=== PATIENT | female | born 1960 | race Hispanic/Latino ===

== ENCOUNTER 2019-07-05 10:40 | Observation (INO) | payer OTHER ==
[~2019-07-05] VITALS: Ht 157.5 cm; Wt 87.5 kg
[~2019-07-05 10:40] MED LIST: PREDNISONE5 MG PO; PROZAC20 MG PO; ULTRAM50 MG PO; WELLBUTRIN75 MG PO; ZOFRAN ODT4 MG PO
--- OUTSIDE RECORDS SUMMARY | 2019-07-05 10:43 | XMS REPORT | Clinical Summary ---
Author Author [facility] Address Unknown Phone Unavailable Care Team Providers Care Inspector Motor Vehicles Name Role Phone Ramez España MD PCP [phone] Allergies No Known Allergies Medications End Date Status Medication Sig Dispensed Refills Start Date Active buPROPion (WELLBUTRIN XL) Take 300 mg 0 300 MG 24 hr tablet by mouth daily. Active fLUoxetine (PROZAC) 20 MG Take 20 mg by 0 capsule mouth daily. Active hydrochlorothiazide Take 25 mg by 0 (HYDRODIURIL) 25 MG mouth daily. tablet Active Problems Problem Noted Date Anxiety 03/18/2016 Headache 03/17/2016 Family History Medical History Relation Name Comments Depression Daughter Asthma Father Hyperlipidemia Father Hypertension Father Mental illness Maternal Aunt Arthritis Maternal Grandmother Diabetes Maternal Grandmother Early Maternal Grandmother Depression Maternal Uncle Hearing loss Mother Hyperlipidemia Mother Arthritis Paternal Aunt Cancer Paternal Aunt Early Paternal Grandfather Early Paternal Grandmother Hyperlipidemia Sister Depression Son Relation Name Status Comments Daughter Father Maternal Aunt Maternal Grandmother Maternal Uncle Mother Paternal Aunt Paternal Grandfather Paternal Grandmother Sister Son Social History Date Tobacco Use Types Packs/Day Years Used Never Smoker Alcohol Use Drinks/Week oz/Week Comments No Sex Assigned at Date Recorded Not on file Industry Job Start Date Occupation Not on file Not on file Not on file Travel End Travel History Travel Start No recent travel history available. Last Filed Vital Signs Not on file Plan of Treatment Not on file Results Not on fileafter 07/04/2018 Insurance Payer Benefit Subscriber ID Type Phone Address Plan / Group AETNA - MGD CARE AETNA xxxxxxxxxx HMO/POS SELECT US ACCESS Advance Directives For more information, please contact: [address] [address] Date Inactivated Comments Code Status Date Activated 03/18/2016 3:55 PM Full Code 03/16/2016 3:41 PM This code status was determined by: Patient
--- OUTSIDE RECORDS SUMMARY | 2019-07-05 10:43 | XMS REPORT | Clinical Summary ---
Author Author [facility] Address Unknown Phone Unavailable Care Team Providers Care Personnel Security Specialist Name Role Phone Ramez España MD PCP Allergies No Known Allergies Medications End Date Status Medication Sig Dispensed Refills Start Date Active rosuvastatin (CRESTOR) 5 0 MG tablet 8 Active gabapentin (NEURONTIN) 0 300 mg capsule 8 Active DULoxetine (CYMBALTA) 60 0 MG capsule 8 Active cyanocobalamin (VITAMIN Take 1,000 0 B-12) 1000 MCG tablet mcg by mouth daily. Active traMADol (ULTRAM) 50 mg 0 tablet 8 Active furosemide (LASIX) 40 mg 0 tablet 8 Active olmesartan (BENICAR) 5 MG 0 tablet 8 Active VITAMIN D2 50,000 unit 0 capsule 8 Active ARIPiprazole (ABILIFY) 5 0 MG tablet 8 Active buPROPion XL (WELLBUTRIN Take 150 mg 0 XL) 150 MG 24 hr tablet by mouth daily. Active BELBUCA 150 mcg film 0 9 Active Problems Problem Noted Date Primary osteoarthritis of knees, bilateral 8 Chronic pain of both knees 11/23/2017 Obesity (BMI 50.48) 11/23/2017 Encounters Care Team Description Date Type Specialty Partha Rogers MD Primary osteoarthritis of knees, bilater al (Primary Dx); Chronic pain of both knees 02/22/2019 Clinical Orthopedic Surgery Support after 07/04/2018 Family History Medical History Relation Name Comments Diabetes Maternal Cristy Grandmother Rheumatologic disease Maternal Cristy Rudi ((*=. Grandmother Relation Name Status Comments Maternal Grandmother Cristy Social History Date Tobacco Use Types Packs/Day Years Used Never Smoker Smokeless Tobacco: Never Used Drinks/Week oz/Week Comments Alcohol Use No Sex Assigned at Date Recorded Not on file Industry Job Start Date Occupation Not on file Not on file Not on file Travel End Travel History Travel Start No recent travel history available. Last Filed Vital Signs Reading Time Taken Comments Vital Sign - - Blood Pressure - - Pulse - - Temperature - - Respiratory Rate - - Oxygen Saturation - - Inhaled Oxygen Concentration 85.7 kg (189 lb) 02/22/2019 8:47 AM BLACK OXIDE COATING EQUIPMENT TENDER Weight 157.5 cm (5' 2") 02/22/2019 8:47 AM BLACK OXIDE COATING EQUIPMENT TENDER Height 34.57 02/22/2019 8:47 AM BLACK [employer]XIDE COATING EQUIPMENT TENDER Body Mass Index Plan of Treatment Health Maintenance Due Date Last Done Comments CERVICAL CANCER SCREENING 08/02/1980 BREAST CANCER SCREENING 08/02/2009 COLONOSCOPY SCREENING 08/02/2009 SHINGLES VACCINES (#1) 08/02/2009 INFLUENZA VACCINE 09/24/2019 01/27/2019, 01/27/2019, 01/04/2018 Procedures Comments Procedure Name Priority Date/Time Associated Diag nosis XR KNEE 4+ VW BILATERAL Routine 02/22/2019 Primar y osteoarthritis of 9:03 AM BLACK OXIDE COATING EQUIPMENT TENDER knees, bilateral XR LEG LENGTH EVALUATION Routine 02/22/2019 Prima ry osteoarthritis of 8:58 AM BLACK [employer]XIDE COATING EQUIPMENT TENDER knees, bilateral ID ARTHROCENTESIS Routine 02/22/2019 Primary oste oarthritis of ASPIR&/INJ MAJOR JT/BURSA 8:45 AM BLACK [employer]XIDE COATING EQUIPMENT TENDER knees, bila teral W/O US Chronic pain of both knees after 07/04/2018 Results * XR Knee 4+ Vw Bilateral (02/22/2019 9:03 AM BLACK [employer] COATING EQUIPMENT TENDER) Specimen Narrative Performed At [facility] X-rays of both knees shows the patient has advanced arthritis in both knees with [id number] contact in the medial compartment,, moderate patellofemoral arthritic changes also p resent. Varus deformities noted bilaterally. Performing Organization Address City/State/Zipcode Ph one Number [facility] [address] [place] [address] * XR Leg Length Evaluation (02/22/2019 8:58 AM BLACK OXIDE COATING EQUIPMENT TENDER) Specimen Narrative Performed At [facility] Long-leg alignment of both knees shows the patient has mild varus alignment. Performing Organization Address City/State/Zipcode Ph one Number [facility] [address] [place] [address] * Large Joint Arthrocentesis: knee, Bilateral knee (02/22/2019 8:45 AM BLACK [employer] COATING EQUIPMENT TENDER) Narrative Performed At Partha Rogers MD 2018 9:26 AM Large Joint Arthrocentesis: knee, Bilat eral knee Consent given by: patient Supporting Documentation Indications: pain Procedure Details Location: knee - Bilateral knee Right side: Needle size: 22 G Right knee medications administered: 1 mL triamcinolone acetonide 40 mg/mL; 3 mL lidocaine 10 mg/mL (1 %) Left side: Needle size: 22 G Left knee medications administered: 1 m L triamcinolone acetonide 40 mg/mL; 3 mL lidocaine 10 mg/mL (1 %) after 07/04/2018 Insurance Type Payer Benefit Subscriber ID Effective Phone Address Plan / Dates Group PPO AETNA AETNA PPO xxxxxxxxxx 2011-P OPEN resent CHOICE Guarantor Name Account Relation to Date of Phone Billin g Address Type Patient Mary Kay Barbosa Personal/F Self 1960 [id number] ([place]) [place] [address] Advance Directives For more information, please contact: [phone] 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
[2019-07-05] MEDS ORDERED: SODIUM CHLORIDE 0.9% 1000ML 2,000 ML ONE (11:54)
--- NOTE | 2019-07-05 11:55 | Diagnostic Imaging Report ---
Examination: CT BRAIN WO CONTRAST History:Dizziness. Slurred speech. Comparison studies:None Technique: Axial images were obtained from the skull base to the vertex. Coronal and sagittal images reconstructed from the axial data. Dose modulation, iterative reconstruction, and/or weight based adjustment of the mA/kV was utilized to reduce the radiation dose to as low as reasonably achievable. Intravenous contrast: None Findings: Scalp: No abnormalities. Bones: No fractures, blastic or lytic lesions. Brain sulci: Appropriate for age. Ventricles: Normal in size and configuration. No hydrocephalus. Extra-axial space: No abnormalities. Parenchyma: There are subtle patchy areas of hypoattenuation in the periventricular and subcortical white matter, nonspecific. No masses, hemorrhage, or acute or chronic cortical based vascular insults.. Sellar/suprasellar region: No abnormalities. Craniocervical junction: Patent foramen magnum. No Chiari one malformation. Incidental findings: None. Impression: No acute intracranial abnormality. Chronic microvascular ischemic change. Signed by: Dr. Mireya Madera M.D. on 07/05/2019 11:51 AM
[2019-07-05 11:57] LABS: BASOPHILS % 0.5 % (0.0-1.0); EOSINOPHILS # (AUTO) 0.1 (0.0-0.4); EOSINOPHILS % 2.1 % (0.0-6.0); HEMATOCRIT 38.6 % (34.2-44.1); HEMOGLOBIN 12.4 g/dL (12.0-16.0); LYMPHOCYTES # (AUTO) 2.2 (1.0-3.2); LYMPHOCYTES % 35.2 % (18.0-39.1); MEAN CORPUSCULAR HEMOGLOBIN 31.5 pg (28-32); MEAN CORPUSCULAR HGB CONC 32.1 g/dL (31-35); MONOCYTES # (AUTO) 0.4 (0.2-0.8); MONOCYTES % 5.9 % (4.4-11.3); NEUTROPHILS # (AUTO) 3.5 (2.1-6.9); NEUTROPHILS % 56.1 % (38.7-80.0); PLATELET COUNT 249 x10e3/uL (140-360); RED BLOOD COUNT 3.94 x10e6/uL (3.6-5.1); RED CELL DISTRIBUTION WIDTH 12.8 % (11.7-14.4)
[2019-07-05 12:11] LABS: ALBUMIN 4.1 g/dL (3.5-5.0); ALBUMIN/GLOBULIN RATIO 1.2 (0.8-2.0); ANION GAP 16.8 mmol/L (8-16); CALCIUM 10.1 mg/dL (8.4-10.2); CREATININE, SERUM 1.06 mg/dL (0.57-1.11); POTASSIUM 3.8 mmol/L (3.5-5.1)
--- OUTSIDE RECORDS SUMMARY | 2019-07-05 13:04 | XMS REPORT | Clinical Summary ---
Author Author [facility] Address Unknown Phone Unavailable Care Team Providers Care Framing Inspector Name Role Phone Ramez España MD PCP [phone] Allergies No Known Allergies Medications End [...] Advance Directives For more information, please contact: [address] [address] Date Inactivated Comments Code Status Date Activated 03/18/2016 3:55 PM Full Code 03/16/2016 3:41 PM This code status was determined by: Patient
--- OUTSIDE RECORDS SUMMARY | 2019-07-05 13:04 | XMS REPORT ---
Author Author [facility] t Organization [facility] Address Unknown Phone Unavailable Care Team Providers Care Content Specialist Name Role Phone Marcy POON Unavailable Unavailable Problems This patient has no known problems. Allergies, Adverse Reactions, Alerts This patient has no known allergies or adverse reactions. Medications This patient has no known medications. Results Test Description Test Time Test Comments Text Results Atomic Results Result Comments CT BRAIN WO 2019-07-05 11:50:00 [place] [address] Patient Name: SOY RNODON MR #: [id number] : 1960 Age/Sex: 58/F Req #: [id number] Adm Physician: Ordered by: CRISTHIAN POON DO Report #: [id number] Location: ER Room/Bed: Procedure: [id number] CT/CT BRAIN WO Exam Date: 07/05/19 Exam Time: 1020 REPORT STATUS: Signed Examination: CT BRAIN WO CONTRAST History:Dizziness. Slurred speech. Comparison studies:None Technique: Axial images were obtained from the skull base to the vertex. Coronal and sagittal images reconstructed from the axial data. Dose modulation, iterative reconstruction, and/or weight based adjustment of the mA/kV was utilized to reduce the radiation dose to as low as reasonably achievable. Intravenous contrast: None Findings: Scalp: No abnormalities. Bones: No fractures, blastic or lytic lesions. Brain sulci: Appropriate for age. Ventricles: Normal in size and configuration. No hydrocephalus. Extra-axial space: No abnormalities. Parenchyma: There are subtle patchy areas of hypoattenuation in the periventricular and subcortical white matter, nonspecific. No masses, hemorrhage, or acute or chronic cortical based vascular insults.. Sellar/suprasellar region: No abnormalities. Craniocervical junction: Patent foramen magnum. No Chiari one malformation. Incidental findings: None. Impression: No acute intracranial abnormality. Chronic microvascular ischemic change. Signed by: Dr. Mireya Madera M.D. on 07/05/2019 11:51 AM Dictated By: MIREYA GARCIA MD 1151 Transcribed By: ROSE MARY on 07/05/19 1151 COPY TO: CRISTHIAN POON DO
--- OUTSIDE RECORDS SUMMARY | 2019-07-05 13:04 | XMS REPORT | Clinical Summary ---
Author Author [facility] Address Unknown Phone Unavailable Care Team Providers Care Elastic Attacher Coverstitch Name Role Phone Ramez España MD PCP [...] 85.7 kg (189 lb) 02/22/2019 8:47 AM LINER REPLACER Weight 157.5 cm (5' 2") 02/22/2019 8:47 AM LINER REPLACER Height 34.57 02/22/2019 8:47 AM LINER REPLACER Body Mass Index Plan of Treatment Health Maintenance Due Date Last Done Comments CERVICAL CANCER SCREENING 08/02/1980 BREAST CANCER SCREENING 08/02/2009 COLONOSCOPY SCREENING 08/02/2009 SHINGLES VACCINES (#1) 08/02/2009 INFLUENZA VACCINE 09/24/2019 01/27/2019, 01/27/2019, 01/04/2018 Procedures Comments Procedure Name Priority Date/Time Associated Diag nosis XR KNEE 4+ VW BILATERAL Routine 02/22/2019 Primar y osteoarthritis of 9:03 AM LINER REPLACER knees, bilateral XR LEG LENGTH EVALUATION Routine 02/22/2019 Prima ry osteoarthritis of 8:58 AM LINER REPLACER knees, bilateral [place] ARTHROCENTESIS Routine 02/22/2019 Primary oste oarthritis of ASPIR&/INJ MAJOR JT/BURSA 8:45 AM LINER REPLACER knees, bila teral W/O US Chronic pain of both knees after 07/04/2018 Results * XR Knee 4+ Vw Bilateral (02/22/2019 9:03 AM LINER REPLACER) Specimen Narrative Performed At [facility] X-rays of both knees shows the patient has advanced arthritis in both knees with brqf-sb-eazt contact in the medial compartment,, moderate patellofemoral arthritic changes also p resent. Varus deformities noted bilaterally. Performing Organization Address City/State/Zipcode Ph one Number [facility] [address] [place] [address] * XR Leg Length Evaluation (02/22/2019 8:58 AM LINER REPLACER) Specimen Narrative Performed At [facility] Long-leg alignment of both knees shows the patient has mild varus alignment. 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
[2019-07-05] MEDS ORDERED: TRAMADOL HCL 50 MG TAB PO PRN (13:45)
[2019-07-05] MEDS ORDERED: ACETAMINOPHEN 325 MG TAB PO PRN (14:00)
[2019-07-05] MEDS ORDERED: GADOBENATE DIMEGLUMINE 1 ML IV ONE (14:27)
[2019-07-05] MEDS ORDERED: SODIUM CHLORIDE 0.9% 100 ML ONE (14:27)
[2019-07-05 14:42] VITALS: BP 128/76
[2019-07-05 14:44] VITALS: BP 128/76
[2019-07-05 15:12] VITALS: BP 128/76
[2019-07-05 16:36] VITALS: BP 120/74
[2019-07-05] MEDS ORDERED: PREDNISONE 5 MG TAB PO SCH (17:00)
--- NOTE | 2019-07-05 17:20 | History and Physical ---
HISTORY OF PRESENT ILLNESS: A 58-year-old female, who claimed that she has no past medical history except for hypercholesterolemia, came to the hospital because she was unable to talk and she was having some severe headache. She had a CT of the head, which showed no significant abnormalities. The patient is feeling better now. Symptoms are gone. The symptoms started at least 5 hours prior to come to the emergency room, so she was out of the window for tPA. REVIEW OF SYSTEMS: CARDIOVASCULAR: No chest pain or palpitation. RESPIRATORY: No shortness of breath. No cough. GASTROINTESTINAL: No nausea or vomiting. No diarrhea. GENITOURINARY: No frequency or dysuria. ALLERGIES: NOT ALLERGIC TO ANY MEDICATION. SOCIAL HISTORY: She does not smoke. She does not drink. PAST MEDICAL HISTORY: Mainly positive for hypercholesteremia. PHYSICAL EXAMINATION: HEART: Showed regular rhythm. Normal S1, S2 sound. LUNGS: Clear bilaterally. ABDOMEN: Soft. EXTREMITIES: Show no evidence of cyanosis or hematoma. NEUROLOGIC: Alert and oriented x3. Cranial nerves 2-12 within normal limits. Motor strength 5/5 in upper and lower extremities. Sensory is intact to lower. VITAL SIGNS: Blood pressure 132/85, temperature 98.2, heart rate 72 per minute, respiratory rate 18 per minute, oxygen saturation is 100%. LABORATORY DATA: On the CBC; white count 6.28, hemoglobin 12.4, hematocrit 38.6, platelet count 249,000. On the BMP; sodium 45, potassium 3.8, chloride 103, CO2 of 29, BUN 13, creatinine 1.06, glucose 107, calcium 10.1, total bilirubin 0.3, AST 26, ALT 23, alkaline phosphatase 83, creatine kinase 63, troponin 0.007, total protein 7.6, albumin 4.1, globin 3.5. On the imaging, she had a CT of the head which showed no evidence of any stroke. No acute intracranial abnormality shows chronic microvascular ischemic changes. IMPRESSION: 1. Possible transient ischemic attack. 2. Hypertension. 3. Hyperlipidemia. PLAN OF TREATMENT: We are going to start the patient on aspirin 325 mg daily, Lipitor 40 mg daily. She is going to continue the home medication, which include Wellbutrin XL 300 mg daily, Prozac 60 mg daily, prednisone 5 mg twice a day, tramadol 50 mg q.8 hours as needed for pain. I am going to put her on Tylenol also 325 mg p.o. q.4 hours as needed for pain or fever. We are going to consult Dr. Stephenson for Neurology. We are going to consult Dr. Schuster for physical and occupational therapy. We are going to get physical and occupational therapy evaluation. We are going to get MRI, MRA of the head, MRA of the carotid arteries to look for any source of emboli and we are going to get an echocardiogram also. Time spent around 45 minutes, reviewing the labs, discussing the case with the emergency room physician and developing plan of care. MD MAHSA Mcguire/TIEN /[id number]
[2019-07-05] MEDS ORDERED: ONDANSETRON HCL 4 MG ORAL DISINTEGRATING TAB PO SCH (18:00)
--- NOTE | 2019-07-05 19:49 | NUR ---
PAGED MD JACOBS REGARDING MED REC. AWAITING SHAUN BACK.
[2019-07-05 20:00] VITALS: BP 95/54
--- NOTE | 2019-07-05 20:40 | NUR ---
SPOKE TO MD JACOBS REGARDING MED REC. NEW ORDERS RECEIVED.
[2019-07-05] MEDS ORDERED: BENICAR20 MG PO (20:43)
[2019-07-05] MEDS ORDERED: LASIX40 MG PO (20:45)
[2019-07-05] MEDS ORDERED: AMITRIPTYLINE H25 MG PO (20:45)
[2019-07-05] MEDS ORDERED: CRESTOR5 MG PO (20:45)
[2019-07-05 20:55] VITALS: BP 115/75
[2019-07-05] MEDS ORDERED: AMITRIPTYLINE HCL 25 MG TAB PO SCH (21:00)
[2019-07-05] MEDS ORDERED: ATORVASTATIN 40 MG TAB PO SCH (21:00)
[2019-07-06] VITALS (7 sets, daily range): BP systolic 93–150; BP diastolic 52–73
[2019-07-06 06:19] LABS: BASOPHILS % 0.5 % (0.0-1.0); EOSINOPHILS # (AUTO) 0.1 (0.0-0.4); EOSINOPHILS % 1.7 % (0.0-6.0); HEMATOCRIT 34.1 % (34.2-44.1); HEMOGLOBIN 11.1 g/dL (12.0-16.0); LYMPHOCYTES # (AUTO) 2.7 (1.0-3.2); MEAN CORPUSCULAR HEMOGLOBIN 32.2 pg (28-32); MEAN CORPUSCULAR HGB CONC 32.6 g/dL (31-35); MEAN CORPUSCULAR VOLUME 98.8 fL (81-99); MONOCYTES # (AUTO) 0.5 (0.2-0.8); MONOCYTES % 7.4 % (4.4-11.3); NEUTROPHILS # (AUTO) 3.3 (2.1-6.9); NEUTROPHILS % 49.2 % (38.7-80.0); PLATELET COUNT 209 x10e3/uL (140-360); RED BLOOD COUNT 3.45 x10e6/uL (3.6-5.1); RED CELL DISTRIBUTION WIDTH 12.5 % (11.7-14.4)
[2019-07-06 06:37] LABS: ALANINE AMINOTRANSFERASE 20 IU/L (0-55); ALBUMIN 3.5 g/dL (3.5-5.0); ALBUMIN/GLOBULIN RATIO 1.3 (0.8-2.0); ALKALINE PHOSPHATASE 68 IU/L (40-150); ANION GAP 10.8 mmol/L (8-16); BLOOD UREA NITROGEN 13 mg/dL (7-26); BUN/CREATININE RATIO 16 (6-25); CALCIUM 8.6 mg/dL (8.4-10.2); CARBON DIOXIDE 30 mmol/L (22-29); CHLORIDE 103 mmol/L (98-107); EST GLOMERULAR FILTRATION RATE > 60 ML/MIN (60-); GLUCOSE 80 mg/dL (74-118); POTASSIUM 3.8 mmol/L (3.5-5.1); SODIUM 140 mmol/L (136-145)
--- NOTE | 2019-07-06 07:04 | NUR ---
REPORT GIVEN TO [facility] NURSE. RESTING IN BED. AAOX3. NO SIGNS IV INFILTRATION. CALL LIGHT WITHIN REACH. SR UPX2. BED LOCKED AND IN LOW POSITION. Addendum: 07/06/19 at 0711 by Marilyn Loco RN PLEASE INCLUDE BED ALARM ACTIVATED.
--- NOTE | 2019-07-06 07:10 | NUR ---
Bedside rounding has been completed and the pt. is sleeping quietly. No issues or concerns were noted.
[2019-07-06] MEDS ORDERED: FUROSEMIDE 40 MG TAB PO SCH (09:00)
[2019-07-06] MEDS ORDERED: FLUOXETINE HCL 20 MG CAP PO SCH (09:00)
[2019-07-06] MEDS ORDERED: CRESTOR 10MG PO SCH (09:00)
[2019-07-06] MEDS ORDERED: OLMESARTAN MEDOXOMIL 5 MG TABLET PO SCH (09:00)
[2019-07-06] MEDS ORDERED: ASPIRIN 325 MG TAB PO SCH (09:00)
[2019-07-06] MEDS ORDERED: BUPROPION HCL 150 MG TABCR PO SCH (09:00)
[2019-07-06] MEDS ORDERED: ACETAMIN/BUTALBITAL/CAFFEINE TAB PO PRN (10:00)
--- NOTE | 2019-07-06 10:18 | Diagnostic Imaging Report ---
MRI OF THE BRAIN AND MRA OF THE HEAD AND NECK WITHOUT IV CONTRAST History: Slurred speech, vertigo Comparison studies: None Technique: Brain: Sagittal T2; axial DWI, FLAIR, MPGR, T1, Coronal FLAIR. MRA of the head and neck: Power injected and 2-D sojv-in-bakwxf MRA of the neck. 3-D ydhc-vj-ipeeqq MRA of the brain. Intravenous contrast: 20 cc of MultiHance. Image quality: Significantly limited study due to motion artifact and blooming artifact originating from the oral cavity. FINDINGS: MRI of the brain: Scalp: Normal in signal . No masses . Bone marrow: Normal in signal intensity. Extra-axial: No masses, no fluid collections. Brain sulci: Appropriate for age. Ventricles: Normal in size . No hydrocephalus . Parenchyma: No abnormal signal intensities. No masses, hemorrhage, acute or chronic vascular insults. Suprasellar region: No abnormalities. Craniocervical junction: No abnormalities. Patent foramen magnum. No Chiari one malformation. Vessels: Normal flow-voids in the arteries and sinuses. MRA of the head and neck Percentage of stenosis will be based on the NASCET criteria. Aortic arch: Obscured by artifacts. Common carotid arteries: Origins obscured by artifacts. Otherwise, no flow abnormalities. Right carotid bulb: No flow abnormalities. Left carotid bulb: No flow abnormalities. Internal carotid arteries: No flow abnormalities. Vertebral arteries: Origins obscured by artifacts. Otherwise, no flow abnormalities. Basilar artery: No flow abnormalities. Posterior cerebral arteries: No flow abnormalities. Anatomical variants: Acom: Visualized. Pcom: Not visualized. Vertebral arteries: Co-dominant. IMPRESSION: IMPRESSION: Significantly limited study due to motion and blooming artifact. MRI of the brain: No significant intracranial acute abnormalities. MRA of the head and neck: No significant flow abnormality Signed by: DR Jaylan Keith M.D. on 07/06/2019 10:09 AM
--- NOTE | 2019-07-06 10:18 | Diagnostic Imaging Report ---
MRI OF THE BRAIN AND MRA OF THE HEAD AND NECK WITHOUT IV CONTRAST History: Slurred speech, vertigo Comparison studies: None Technique: Brain: Sagittal T2; axial DWI, FLAIR, MPGR, T1, Coronal FLAIR. MRA of the head and neck: Power injected and 2-D rxrh-om-ltevsc MRA of the neck. 3-D imup-hh-[id number] MRA of the brain. Intravenous contrast: 20 cc of MultiHance. Image quality: Significantly limited study due to motion artifact and blooming artifact originating from the oral cavity. FINDINGS: MRI of the brain: Scalp: Normal in signal . No masses . Bone marrow: Normal in signal intensity. Extra-axial: No masses, no fluid collections. Brain sulci: Appropriate for age. Ventricles: Normal in size . No hydrocephalus . Parenchyma: No abnormal signal intensities. No masses, hemorrhage, acute or chronic vascular insults. Suprasellar region: No abnormalities. Craniocervical junction: No abnormalities. Patent foramen magnum. No Chiari one malformation. Vessels: Normal flow-voids in the arteries and sinuses. MRA of the head and neck Percentage of stenosis will be based on the NASCET criteria. Aortic arch: Obscured by artifacts. Common carotid arteries: Origins obscured by artifacts. Otherwise, no flow abnormalities. Right carotid bulb: No flow abnormalities. Left carotid bulb: No flow abnormalities. Internal carotid arteries: No flow abnormalities. Vertebral arteries: Origins obscured by artifacts. Otherwise, no flow abnormalities. Basilar artery: No flow abnormalities. Posterior cerebral arteries: No flow abnormalities. Anatomical variants: Acom: Visualized. Pcom: Not visualized. Vertebral arteries: Co-dominant. IMPRESSION: IMPRESSION: Significantly limited study due to motion and blooming artifact. MRI of the brain: No significant intracranial acute abnormalities. MRA of the head and neck: No significant flow abnormality Signed by: DR Jaylan Keith M.D. on 07/06/2019 10:09 AM
--- NOTE | 2019-07-06 10:18 | Diagnostic Imaging Report ---
MRI OF THE BRAIN AND MRA OF THE HEAD AND NECK WITHOUT IV CONTRAST History: Slurred speech, vertigo Comparison studies: None Technique: Brain: Sagittal T2; axial DWI, FLAIR, MPGR, T1, Coronal FLAIR. MRA of the head and neck: Power injected and 2-D xzbr-mq-thrvjd MRA of the neck. 3-D [id number]-cc-owxwqs MRA of the brain. Intravenous contrast: 20 cc of MultiHance. Image quality: Significantly limited study due to motion artifact and blooming artifact originating from the oral cavity. FINDINGS: MRI of the brain: Scalp: Normal in signal . No masses . Bone marrow: Normal in signal intensity. Extra-axial: No masses, no fluid collections. Brain sulci: Appropriate for age. Ventricles: Normal in size . No hydrocephalus . Parenchyma: No abnormal signal intensities. No masses, hemorrhage, acute or chronic vascular insults. Suprasellar region: No abnormalities. Craniocervical junction: No abnormalities. Patent foramen magnum. No Chiari one malformation. Vessels: Normal flow-voids in the arteries and sinuses. MRA of the head and neck Percentage of stenosis will be based on the NASCET criteria. Aortic arch: Obscured by artifacts. Common carotid arteries: Origins obscured by artifacts. Otherwise, no flow abnormalities. Right carotid bulb: No flow abnormalities. Left carotid bulb: No flow abnormalities. Internal carotid arteries: No flow abnormalities. Vertebral arteries: Origins obscured by artifacts. Otherwise, no flow abnormalities. Basilar artery: No flow abnormalities. Posterior cerebral arteries: No flow abnormalities. Anatomical variants: Acom: Visualized. Pcom: Not visualized. Vertebral arteries: Co-dominant. IMPRESSION: IMPRESSION: Significantly limited study due to motion and blooming artifact. MRI of the brain: No significant intracranial acute abnormalities. MRA of the head and neck: No significant flow abnormality Signed by: DR Jaylan Keith M.D. on 07/06/2019 10:09 AM
--- NOTE | 2019-07-06 10:38 | Progress Note ---
DATE: Internal Medicine Progress Note SUBJECTIVE: The patient is complaining of headache. PHYSICAL EXAMINATION: HEART: Showed regular rhythm. Normal S1, S2 sound. LUNGS: Clear bilaterally. ABDOMEN: Soft. EXTREMITIES: Show no edema. NEUROLOGIC: 5/5 for upper and lower extremities motor strength. VITAL SIGNS: Blood pressure 107/59, temperature 96.6, heart rate 68 per minute, respiratory rate 20 per minute, and O2 saturation 93%. LABORATORY DATA: On the CMP; sodium 140, potassium 3.9, chloride 103, CO2 of 30, BUN 13, creatinine , total bilirubin 0.4, AST 22, ALT 20, alkaline phosphatase 68, total protein 6.2, albumin 3.5, globulin 2.7. On the CBC, white blood count 6.74, hemoglobin , hematocrit 34.1, and platelet count 209,000. Coronavirus test is pending. IMAGING: We are waiting for the MRI of the brain and MRI of the head and neck. CT of the head showed no evidence of any stroke. Shows she has chronic microvascular ischemic changes. The patient is complaining mainly of headache. No significant motor deficits. IMPRESSION: 1. Possible transient ischemic attack. 2. Headaches. 3. Hypertension. 4. Hyperlipidemia. PLAN OF TREATMENT: Awaiting for MRI of the head and MRI of the neck and brain. In the meantime, we are going to continue amitriptyline 100 mg at bedtime, aspirin 325 mg daily, bupropion 300 mg daily, furosemide 40 mg daily, Benicar 5 mg daily, and Crestor 5 mg daily. We are going to give her a Fioricet for headache one tablet q.6 hours as needed for headache. Neurology consult with Dr. Stephenson has been requested because of the episode of TIA. MD MAHSA Mcguire/TIEN /[id number]
[2019-07-06] MEDS ORDERED: KETOROLAC TROMETHAMINE 30 MG/ML VIAL IV PRN (13:30)
[2019-07-06] MEDS ORDERED: FAMOTIDINE 20 MG TAB PO ONE (14:00)
[2019-07-06] MEDS ORDERED: METHYLPREDNISOLONE SOD SUCC 125 MG/2ML VIAL IV ONE (14:00)
[2019-07-06 16:07] LABS: CHOL/HDL RATIO 1.9 (3.0-3.6)
[2019-07-06 16:27] LABS: THYROID STIMULATING HORMONE 0.914 uIU/mL (0.350-4.940)
--- NOTE | 2019-07-06 17:58 | NUR ---
The pt. was sent home in stable condition with scripts and discharge instructions in her possession.
--- NOTE | 2019-07-06 21:30 | Consultation ---
DATE OF CONSULTATION: Neurology Consultation REASON FOR CONSULTATION: Possible stroke. HISTORY OF PRESENT ILLNESS: The patient is a 58-year-old female, who claims no past medical history except for high cholesterol and previous headache which required occipital nerve injections, who presented because she had difficulty with expressive speech and severe headache. She denies frequent headaches. She does have severe headaches intermittently, maybe once or twice a year. Sometimes they can last as much few days to this month, lasted about 10 days. Previously, she had a very similar event about two years ago, which was non resolving, thus she needed occipital nerve injections or occipital nerve blocks. She reports that the headaches have been going on since prior Thursday. This morning she had expressive speech problems and her daughter reports hallucinations. She came to the emergency for further care and evaluation. Her speech problems resolve. She thought the headache currently is 4/10. REVIEW OF SYSTEMS: Denies chest pain, shortness of breath, nausea, vomiting, dysuria or urinary frequency. Denies double vision or blurry vision. Endorses headache. Endorses neck tension. Otherwise, 14-point review of systems negative. SOCIAL HISTORY: No tobacco, alcohol, or drugs. MEDICAL HISTORY: Hypercholesterolemia and headaches. PHYSICAL EXAMINATION: VITAL SIGNS: Her vital signs show a temperature of 96.7, heart rate is 69, and regular, blood pressure is borderline . HEENT: Her extraocular muscles are intact. Face symmetric. Tongue is midline. Speech is clear. She is oriented x3. Fluent receptive and expressive speech. NECK: No nuchal rigidity. Does have neck tension in the trapezius muscles, may be at the deltoids as well. CARDIOVASCULAR: Regular rate and rhythm. PULMONARY: Clear to auscultation. ABDOMEN: Soft and nontender. No distention. EXTREMITIES: Reflexes symmetrically 1/4. There is no ataxia or dysmetria. Strength is 5/5 in all four extremities. Toes are mute or downgoing bilaterally. ASSESSMENT AND PLAN: I am seeing the patient for severe headache. It does not sound like she had a TIA, although she may have had an encephalopathic migraine. I gave her a migraine cocktail, we are going to get an MRI of her brain, which was already performed and was found to be clearly normal, so I think this is status migrainosus . MD DENISE FRIEDMAN /[id number]
--- NOTE | 2019-07-07 02:41 | Discharge Summary ---
HISTORY: A 58-year-old female who came to the hospital complaining of unable to talk, slurred speech, symptoms went away pretty quick. When she came to the hospital, a CT of the head showed no significant abnormalities. MRI of the head showed no stroke. MRI of the neck, MRA of the brain showed no significant abnormalities either. The patient is back to normal. She complains of mild headache. She is going home today. PHYSICAL EXAMINATION: HEART: Showed regular rhythm. Normal S1 and S2 sound. LUNGS: Clear bilaterally. ABDOMEN: Soft. NEUROLOGIC: Normal. VITAL SIGNS: Temperature 96.7, heart rate 69 per minute, respiratory rate 20 per minute, blood pressure 93/52, oxygen saturation 96%. As I said, the MRI of the head came back showing no evidence of stroke. MRA of the neck and MRI of the brain showed no evidence of any arterial stenosis. IMPRESSION: Most likely transient ischemic attack . PLAN OF TREATMENT: The patient will resume home medication. She will continue with baby aspirin 81 mg daily. Continue with Fioricet 1 tablet q.4 hours as needed for headache, amitriptyline 100 mg at bedtime. Continue Pepcid 20 mg twice a day, furosemide 40 mg daily. She is taking Benicar 5 mg daily and Crestor 5 mg daily. The patient is going to be going home today. Discharge if okay with Dr. Stephenson, Neurology. Follow up with her primary care physician in a week. MD MAHSA Mcguire/TIEN /[id number]
[2019-07-07] MEDS ORDERED: ASPIRIN 325 MG TAB PO SCH (09:00)
--- NOTE | 2019-07-07 16:42 | Emergency Department Note ---
History of Present Illnes History of Present Illness Chief Complaint: Neurological History of Present Illness This is a 58 year old female WITH hypercholesterolemia, called EMS for slurred speech. Pt also states she is not able to walk, pt states she work up with these symptoms. Historian: Patient, Family Member Arrival Mode: Car Commissary Assistant Required: No Onset (how long ago): hour(s) Onset quality: sudden Past Medical/Family History Physician Review I have reviewed the patient's past medical and family history. Any updates have been documented here. Past Medical History Recent Fever: No Clinical Suspicion of Infectio: No New/Unexplained Change in Ment: No Past Medical History: Anxiety, Depression Other Medical History: ANXIETY DEPRESSION Past Surgical History: None Other Surgery: 2 C-SECTIONS CARPAL TUNNEL RIGHT FOOT Social History Smoking Cessation: Never Smoker Counseling Performed: No Alcohol Use: None Any Illegal Drug Use: No TB Exposure/Symptoms: No Physically hurt or threatened: No Family History Family history of heart diseas: No Other Last Tetanus: [place] Any Pre-Existing Lines (PICC,: No Is patient up to date on immun: Yes Last Flu: utd Last Pneumovax: utd Review of Systems Review of Systems Constitutional: no symptoms EENTM: no symptoms Cardiovascular: no symptoms Respiratory: no symptoms Gastrointestinal: no symptoms Genitourinary: no symptoms Musculoskeletal: no symptoms Integumentary: no symptoms Neurological: weakness, other (slurred speech, unsteady gait ) Psychological: no symptoms Endocrine: no symptoms Hematological/Lymphatic: no symptoms Review of other systems All other systems reviewed and negative. Physical Exam Related Data Allergies: Coded Allergies: No Known Allergies (Verified , 03/15/16) Triage Vital Signs Vital Signs Date Time Temp Pulse Resp B/P (MAP) Pulse Ox O2 Delivery O2 Flow Rate FiO2 07/05/19 10:47 98.2 72 18 126/81 100 07/05/19 14:42 Room Air Physical Exam CONSTITUTIONAL Constitutional: well-developed, well-nourished HENT HENT: normocephalic, atraumatic, oropharynx clear/moist, nose normal HENT - Ear: left ext ear normal, right ext ear normal EYES Eyes: PERRL, conjunctivae normal NECK Neck: ROM normal PULMONARY Pulmonary: effort normal, breath sounds normal CARDIOVASCULAR Cardiovascular: regular rhythm, heart sounds normal, capillary refill normal, normal rate GASTROINTESTINAL Abdominal: soft, nontender, bowel sounds normal GENITOURINARY Genitourinary: exam deferred SKIN Skin: warm, dry MUSCULOSKELETAL Musculoskeletal: ROM normal NEUROLOGICAL Neurological: alert, oriented x 3, abnormal coordination, abnormal gait PSYCHOLOGICAL Psychiatric/behavioral: mood/affect normal, judgement normal Results Laboratory Result Diagram: 07/06/1943 07/06/19541 Lab results reviewed: Yes Imaging Imaging results reviewed: Yes Impressions Impression: No acute intracranial abnormality. Chronic microvascular ischemic change. Procedures 12 Lead ECG Interpretation Commissary Assistant: Interpreted by ED physician Prior PROGRAM DIRECTOR tracings: reviewed Rhythm: sinus rhythm Rate: normal QRS axis: normal Clinical Impression: normal ECG Critical Care Time Subsequent provider I assumed direction of critical care for this patient from another provider of my specialty. Clinical Decision Tools NIH Stroke Scale Interval: baselline NIH Stroke Score: NIH Stroke Score Response (Comments) Value Level of Consciousness Alert, Keenly Responsive 0 Level of Consciousness Questions Answers Both Correctly 0 Level of Consciousness Commands Performs Both Tasks 0 Lateral Gaze Paresis Normal 0 Visual Field Loss No Visual Loss 0 Facial Palsy Normal Symmetrical Move 0 Motor Left Arm No Drift, Arm Stays 45/90 0 Motor Right Arm No Drift, Arm Stays 45/90 0 Motor Left Leg No Drift, Arm Stays 45/90 0 Motor Right Leg No Drift, Arm Stays 45/90 0 Limb Ataxia Present in Two Limbs 2 Sensory Loss Normal 0 Language Aphasia No Aphasia, Normal 0 Dysarthria Normal 0 Extinction and Inattention No Abnormality 0 Total 2 Baseline increased by 4: No Assessment & Plan Assessment & Plan Problems: (1) CVA (cerebral vascular accident) Assessment & Plan cva -slurred speech resolved -mild baseline ataxia -CT Brain -ASA given -out of the window for TPA given pt woke up with symptoms Depart Disposition: ADMITTED Last Vital Signs Date Time Temp Pulse Resp B/P (MAP) Pulse Ox O2 Delivery O2 Flow Rate FiO2 07/06/19 16:42 96.7 62 20 104/59 (74) 96 07/06/19 07:57 Room Air Home Meds Reported Medications Amitriptyline Hcl (AMITRIPTYLINE HCL) 25 Mg Tablet, 100 MG PO HS, #30 TAB 07/05/19 Rosuvastatin Calcium (CRESTOR) 5 Mg Tablet, 5 MG PO DAILY THERAPEUTICALLY SUBSTITUTED WITH SIMVASTATIN 20MG 07/05/19 Furosemide (LASIX) 40 Mg Tablet, 40 MG PO DAILY, #30 TAB 07/05/19 Olmesartan Medoxomil (BENICAR) 20 Mg Tablet, 5 MG PO DAILY, #30 TAB 07/05/19 Bupropion Hcl (WELLBUTRIN) 75 Mg Tablet, 300 MG PO DAILY 12/28/14 Discontinued Reported Medications Ondansetron (ZOFRAN ODT) 4 Mg Tab.rapdis, 4 MG PO Q6H, TAB 03/15/16 Tramadol Hcl (ULTRAM) 50 Mg Tablet, 50 MG PO Q8H PRN for PAIN, TAB 03/15/16 Prednisone (PREDNISONE) 5 Mg Tablet, 5 MG PO BID 03/15/16 Fluoxetine Hcl (PROZAC) 20 Mg Capsule, 60 MG PO DAILY, #30 TAB 12/28/14 Medications in the ED Sodium Chloride 2,000 ml @ [facility] ONCE .ROUTE ; Start 07/05/19 at 11:54; Stop 07/05/19 at 11:48; Status CRISTHIAN PICKARD DO July 07, 2019 16:42
== END 2019-07-06 17:58 | disposition home or self-care (01) ==
LOC: ER 10:40 → ERHOLD 12:44 → MED/SURG 14:19
PROVIDERS: ADMIT Internal Medicine; ATTEND Internal Medicine
DX: R51 Headache (principal); R49.0 Dysphonia; E78.00 Pure hypercholesterolemia, unspecified
CPT/HCPCS: 36415 ×2; 70450; 70544; 70549; 70551; 80053 ×2; 80061; 82550; 82553; 82607; 83540; 83735; 83874; 84146; 84425; 84443; 84466; 84484; 85025 ×2; 85651; 87635; 93005; 93306; 97116 ×2; 97139; 97162; 97530; 99284; A9577; G0378 ×2; J2930; J7030; J7050; J7512; Q0162

== ENCOUNTER 2019-08-08 13:12 | Emergency (ER) | payer OTHER ==
[~2019-08-08] VITALS: Ht 157.5 cm; Wt 87.5 kg
[~2019-08-08 13:12] MED LIST changes: +AMITRIPTYLINE H25 MG PO; +BENICAR20 MG PO; +CRESTOR5 MG PO; +LASIX40 MG PO
--- NOTE | 2019-08-08 13:29 | Emergency Department Note ---
History of Present Illnes History of Present Illness Chief Complaint: General Medicine Complaints History of Present Illness This is a 59 year old female who arrived to the ED with complaints of nausea and increased salivation. Patient also states she is having trouble swallowing. Patient states symptoms happened after having a quesadilla at a restaurant. Patient denies any chest pain or shortness of breath, only states she cannot swallow her saliva.. Historian: Patient Adobe Developer Required: No Onset (how long ago): hour(s) Radiation: Reports non-radiation Severity: mild Onset quality: sudden Timing of current episode: constant Progression: waxing and waning Chronicity: new Relieving factors: none Exacerbating factors: none Past Medical/Family History Physician Review I have reviewed the patient's past medical and family history. Any updates have been documented here. Past Medical History Unable to obtain PMH: pediatric patient Recent Fever: No Clinical Suspicion of Infectio: No Past Medical History: Anxiety, Depression Other Medical History: ANXIETY DEPRESSION Past Surgical History: None Other Surgery: 2 C-SECTIONS CARPAL TUNNEL RIGHT FOOT Social History Smoking Cessation: Never Smoker Alcohol Use: Social Any Illegal Drug Use: No TB Exposure/Symptoms: No Physically hurt or threatened: No Family History Family history of heart diseas: Yes Other Last Tetanus: [place] Any Pre-Existing Lines (PICC,: No Is patient up to date on immun: Yes Review of Systems Review of Systems Constitutional: Reports no symptoms EENTM: Reports no symptoms Cardiovascular: Reports no symptoms Respiratory: Reports no symptoms, Reports as per HPI, Reports other (dysphagia) Gastrointestinal: Reports no symptoms Genitourinary: Reports no symptoms Musculoskeletal: Reports no symptoms Integumentary: Reports no symptoms Neurological: Reports no symptoms Psychological: Reports no symptoms Endocrine: Reports no symptoms Hematological/Lymphatic: Reports no symptoms Physical Exam Related Data Allergies: Coded Allergies: No Known Allergies (Verified , 03/15/16) Vital signs reviewed: Yes Physical Exam CONSTITUTIONAL Constitutional: Present well-developed, Present well-nourished HENT HENT: Present normocephalic, Present atraumatic, Present oropharynx clear/moist, Present nose normal HENT L/R: Present left ext ear normal, Present right ext ear normal EYES Eyes: Reports PERRL, Reports conjunctivae normal NECK Neck: Present ROM normal PULMONARY Pulmonary: Present effort normal, Present breath sounds normal CARDIOVASCULAR Cardiovascular: Present regular rhythm, Present heart sounds normal, Present capillary refill normal, Present normal rate GASTROINTESTINAL Abdominal: Present soft, Present nontender, Present bowel sounds normal GENITOURINARY Genitourinary: Present exam deferred SKIN Skin: Present warm, Present dry MUSCULOSKELETAL Musculoskeletal: Present ROM normal NEUROLOGICAL Neurological: Present alert, Present oriented x 3, Present no gross motor or sensory deficits PSYCHOLOGICAL Psychological: Present mood/affect normal, Present judgement normal Results Laboratory Lab results reviewed: Yes Laboratory comments Laboratory Tests Test 08/08/19 17:19 08/08/19 13:29 Urine Color Yellow (YELLOW) Urine Clarity Clear (CLEAR) Urine pH 5.5 (5 - 7) Urine Specific Hasty >=1.030 (1.010-1.025) Urine Protein Negative (NEGATIVE) Urine Glucose (UA) Negative (NEGATIVE) Urine Ketones 1+ (NEGATIVE) Urine Blood Negative (NEGATIVE) Urine Nitrite Negative (NEGATIVE) Urine Bilirubin Negative (NEGATIVE) Urine Urobilinogen 0.2 mg/dL (0.2 - 1) Urine Leukocyte Esterase Negative (NEGATIVE) Urine RBC 0-5 /HPF (0-5) Urine WBC 11-20 /HPF (0-5) Urine Epithelial Cells Many /LPF (NONE) Urine Bacteria Many /HPF (NONE) White Blood Count 7.04 x10e3/uL (4.8-10.8) Red Blood Count 3.82 x10e6/uL (3.6-5.1) Hemoglobin 12.1 g/dL (12.0-16.0) Hematocrit 37.0 % (34.2-44.1) Mean Corpuscular Volume 96.9 fL (81-99) Mean Corpuscular Hemoglobin 31.7 pg (28-32) Mean Corpuscular Hemoglobin Concent 32.7 g/dL (31-35) Red Cell Distribution Width 13.0 % (11.7-14.4) Platelet Count 269 x10e3/uL (140-360) Neutrophils (%) (Auto) 63.0 % (38.7-80.0) Lymphocytes (%) (Auto) 29.3 % (18.0-39.1) Monocytes (%) (Auto) 5.0 % (4.4-11.3) Eosinophils (%) (Auto) 1.7 % (0.0-6.0) Basophils (%) (Auto) 0.6 % (0.0-1.0) Neutrophils # (Auto) 4.4 (2.1-6.9) Lymphocytes # (Auto) 2.1 (1.0-3.2) Monocytes # (Auto) 0.4 (0.2-0.8) Eosinophils # (Auto) 0.1 (0.0-0.4) Basophils # (Auto) 0.0 (0.0-0.1) Absolute Immature Granulocyte (auto 0.03 x10e3/uL (0-0.1) Sodium Level 135 mmol/L (136-145) Potassium Level 3.9 mmol/L (3.5-5.1) Chloride Level 109 mmol/L (98-107) Carbon Dioxide Level 16 mmol/L (22-29) Anion Gap 13.9 mmol/L (8-16) Blood Urea Nitrogen 95 mg/dL (7-26) Creatinine 4.85 mg/dL (0.57-1.11) Estimat Glomerular Filtration Rate 9 ML/MIN (60-) BUN/Creatinine Ratio 20 (6-25) Glucose Level 92 mg/dL (74-118) Calcium Level 7.5 mg/dL (8.4-10.2) Total Bilirubin 0.2 mg/dL (0.2-1.2) Aspartate Amino Transf (AST/SGOT) 16 IU/L (5-34) Alanine Aminotransferase (ALT/SGPT) 10 IU/L (0-55) Alkaline Phosphatase 28 IU/L (40-150) Creatine Kinase 127 IU/L (29-168) Creatine Kinase MB 2.80 ng/mL (0-5.0) Troponin I 0.022 ng/mL (0-0.300) Total Protein 4.3 g/dL (6.5-8.1) Albumin 2.0 g/dL (3.5-5.0) Globulin 2.3 g/dL (2.3-3.5) Albumin/Globulin Ratio 0.9 (0.8-2.0) Imaging Imaging results reviewed: Yes Impressions IMPRESSION: No acute radiographic abnormality identified within the neck/cervical spine. Degenerative changes of the cervical spine. Signed by: Dr. Carmelo Cruz MD on 08/08/2019 2:53 PM Procedures 12 Lead ECG Interpretation ECG Interpretation : ECG: ECG 1 Prior ECG tracings: reviewed Rhythm: sinus rhythm Rate: normal QRS axis: normal ST segments normal: Yes T waves normal: Yes Clinical Impression: normal ECG Assessment & Plan Medical Decision Making MDM 59-year-old well-appearing female arrived to the ED with complaints of dysphagia that happen after having quesadilla. Patient with a benign exam. EKG and cardiac markers done to rule out any atypical presentation of ACS. EKG and cardiac markers were normal. Patient given dexamethasone with suspicion of possible allergic reaction, patient does suffer from underlying anxiety and this may be a component of her symptoms. Lab work resulted in a marked elevation of creatinine from patient's baseline less than a month ago. Patient transferred Critical access hospital for further workup and management in the setting of acute renal failure. [facility] is currently at capacity. Assessment & Plan Final Impression: (1) Renal failure Depart Disposition: TRANS TO OTHER [facility] Home Meds Reported Medications Amitriptyline Hcl (AMITRIPTYLINE HCL) 25 Mg Tablet, 100 MG PO HS, #30 TAB 07/05/19 Rosuvastatin Calcium (CRESTOR) 5 Mg Tablet, 5 MG PO DAILY THERAPEUTICALLY SUBSTITUTED WITH SIMVASTATIN 20MG 07/05/19 Furosemide (LASIX) 40 Mg Tablet, 40 MG PO DAILY, #30 TAB 07/05/19 Olmesartan Medoxomil (BENICAR) 20 Mg Tablet, 5 MG PO DAILY, #30 TAB 07/05/19 Bupropion Hcl (WELLBUTRIN) 75 Mg Tablet, 300 MG PO DAILY 12/28/14 CRISTHIAN POON DO Aug 08, 2019 13:29
[2019-08-08] MEDS ORDERED: DEXAMETHASONE SOD PHOS 10 MG/1 ML VIAL IV ONE (13:30)
[2019-08-08 14:04] LABS: BASOPHILS % 0.6 % (0.0-1.0); EOSINOPHILS # (AUTO) 0.1 (0.0-0.4); EOSINOPHILS % 1.7 % (0.0-6.0); HEMOGLOBIN 12.1 g/dL (12.0-16.0); LYMPHOCYTES # (AUTO) 2.1 (1.0-3.2); LYMPHOCYTES % 29.3 % (18.0-39.1); MEAN CORPUSCULAR HEMOGLOBIN 31.7 pg (28-32); MEAN CORPUSCULAR HGB CONC 32.7 g/dL (31-35); MEAN CORPUSCULAR VOLUME 96.9 fL (81-99); MONOCYTES # (AUTO) 0.4 (0.2-0.8); NEUTROPHILS # (AUTO) 4.4 (2.1-6.9); PLATELET COUNT 269 x10e3/uL (140-360); RED BLOOD COUNT 3.82 x10e6/uL (3.6-5.1)
[2019-08-08 14:16] LABS: ALBUMIN/GLOBULIN RATIO 0.9 (0.8-2.0); ANION GAP 13.9 mmol/L (8-16); CALCIUM 7.5 mg/dL (8.4-10.2); CREATININE, SERUM 4.85 mg/dL (0.57-1.11); POTASSIUM 3.9 mmol/L (3.5-5.1)
[2019-08-08 14:25] LABS: CREATINE KINASE MB 2.8 ng/mL (0-5.0)
--- NOTE | 2019-08-08 14:56 | Diagnostic Imaging Report ---
EXAM: NECK SOFT TISSUE DATE: 08/08/2019 2:31 PM INDICATION: Dysphagia, chest pain COMPARISON: None FINDINGS: AP and lateral views were obtained of the neck. The prevertebral soft tissues are unremarkable without evidence for abnormal thickening or radiopaque foreign body. The trachea appears patent/midline. There is straightening of the normal cervical lordosis which may be related to positioning. There is no evidence for acute fracture or dislocation. Multilevel degenerative changes are noted within the cervical spine most prominent at C4-C5 where there is intervertebral disc space narrowing. The visualized lung apices are clear. IMPRESSION: No acute radiographic abnormality identified within the neck/cervical spine. Degenerative changes of the cervical spine. Signed by: Dr. Carmelo Cruz MD on 08/08/2019 2:53 PM
--- NOTE | 2019-08-08 16:01 | NUR ---
{null, Pt reports she has bilateral flank pain for the last few months. }
[2019-08-08] MEDS ORDERED: SODIUM CHLORIDE 0.9% 1000ML 1,000 ML IV STA (16:49)
[2019-08-08 17:33] LABS: BILIRUBIN,URINE NEGATIVE (NEGATIVE); CLARITY,URINE CLEAR (CLEAR); COLOR,URINE YELLOW (YELLOW); KETONES,URINE 1+ (NEGATIVE); LEUKOCYTE ESTERASE ,URINE NEGATIVE (NEGATIVE); NITRITE,URINE NEGATIVE (NEGATIVE); PROTEIN,URINE DIPSTICK NEGATIVE (NEGATIVE); URINE UROBILINOGEN 0.2 mg/dL (0.2 - 1)
--- NOTE | 2019-08-08 17:36 | NUR ---
{null, Nursing report called to Kamini DUPONT at [facility]. [phone] }
[2019-08-08 17:43] LABS: BACTERIA,URINE MANY /HPF; EPITHELIAL CELLS,URINE MANY /LPF; RBC,URINE 0-5 /HPF (0-5)
[2019-08-08] MEDS ORDERED: ACETAMINOPHEN 325 MG TAB PO ONE (20:30)
== END 2019-08-08 22:32 | disposition other institution (70) ==
LOC: ER 13:12
DX: R11.0 Nausea (principal); R13.10 Dysphagia, unspecified; N19 Unspecified kidney failure; F41.9 Anxiety disorder, unspecified; F32.9 Major depressive disorder, single episode, unspecified
CPT/HCPCS: 36415; 70360; 80053; 81001; 82550; 82553; 84484; 85025; 93005; 99284; J1100; J7030

== ENCOUNTER 2019-08-16 15:57 | Emergency (ER) | payer OTHER ==
[~2019-08-16] VITALS: Ht 157.5 cm; Wt 87.5 kg
[2019-08-16] MEDS ORDERED: HYDROCODONE/APAP 7.5MG-325MG 1 EA TAB PO PRN (16:45)
--- NOTE | 2019-08-16 17:21 | NUR ---
DR. REEVES SPOKE WITH PATIENT AGAIN, SHE IS REFUSING CT SCAN AND WILL FOLLOW UP WITH HER
--- NOTE | 2019-08-16 18:07 | Emergency Department Note ---
History of Present Illnes History of Present Illness Chief Complaint: Extremity Trauma/Pain History of Present Illness This is a 59 year old female YESTERDAY BEGAN HAVING SHARP RIGHT THIGH PAIN THAT RADIATES TO GROIN. DENIES ANY TRAUMA. STATES, "I FEEL LIKE ITS NERVE PAIN" SHE HAD AN EMG DONE July, AND THEY ARE WANTING TO TREAT HER FOR NEUROPATHY. PATIENT REFUSING WORK UP AND JUST WANTS PAIN MEDICATION. Historian: Patient Arrival Mode: Car Additional Treatment STAFF CYTOTECHNOLOGIST: TYLENOL @11 Past Medical/Family History Physician Review I have reviewed the patient's past medical and family history. Any updates have been documented here. Past Medical History Recent Fever: No Clinical Suspicion of Infectio: No New/Unexplained Change in Ment: No Past Medical History: Hypertension, Anxiety, Depression, Hyperlipedemia Other Medical History: ANXIETY DEPRESSION Past Surgical History: None Other Surgery: 2 C-SECTIONS CARPAL TUNNEL RIGHT FOOT GASTRIC BYPASS Social History Smoking Cessation: Never Smoker Counseling Performed: No Alcohol Use: None Any Illegal Drug Use: No TB Exposure/Symptoms: No Physically hurt or threatened: No Other Last Tetanus: UNKNOWN Any Pre-Existing Lines (PICC,: No Is patient up to date on immun: Yes Last Flu: UTD Last Pneumovax: UTD Physical Exam Related Data Allergies: Coded Allergies: No Known Allergies (Verified , 08/16/19) Triage Vital Signs Vital Signs Date Time Temp Pulse Resp B/P (MAP) Pulse Ox O2 Delivery O2 Flow Rate FiO2 08/16/19 16:27 98.9 67 18 96/73 100 Physical Exam CONSTITUTIONAL HENT EYES NECK PULMONARY CARDIOVASCULAR GASTROINTESTINAL GENITOURINARY SKIN MUSCULOSKELETAL NEUROLOGICAL PSYCHOLOGICAL Assessment & Plan Depart Disposition: HOME, SELF-CARE Last Vital Signs Date Time Temp Pulse Resp B/P (MAP) Pulse Ox O2 Delivery O2 Flow Rate FiO2 08/16/19 17:14 98.9 64 18 100/76 100 Home Meds Reported Medications Amitriptyline Hcl (AMITRIPTYLINE HCL) 25 Mg Tablet, 100 MG PO HS, #30 TAB 07/05/19 Rosuvastatin Calcium (CRESTOR) 5 Mg Tablet, 5 MG PO DAILY THERAPEUTICALLY SUBSTITUTED WITH SIMVASTATIN 20MG 07/05/19 Furosemide (LASIX) 40 Mg Tablet, 40 MG PO DAILY, #30 TAB 07/05/19 Olmesartan Medoxomil (BENICAR) 20 Mg Tablet, 5 MG PO DAILY, #30 TAB 07/05/19 Bupropion Hcl (WELLBUTRIN) 75 Mg Tablet, 300 MG PO DAILY 12/28/14 Medications in the ED Acetaminophen/ Hydrocodone Bitart 1 ea Q6H PRN PO MODERATE PAIN (4-6) Last administered on 08/16/19at 17:19; Admin Dose 1 EA; Start 08/16/19 at 16:45; Stop 08/23/19 at 16:44 MARC REEVES MD Aug 16, 2019 18:07
== END 2019-08-16 17:21 | disposition home or self-care (01) ==
LOC: ER 15:57
DX: M79.651 Pain in right thigh (principal); I10 Essential (primary) hypertension; E78.5 Hyperlipidemia, unspecified; F41.9 Anxiety disorder, unspecified; F32.9 Major depressive disorder, single episode, unspecified
CPT/HCPCS: 99283

== ENCOUNTER 2019-08-17 09:05 | Emergency (ER) | payer OTHER ==
[~2019-08-17] VITALS: Ht 157.5 cm; Wt 87.5 kg
[2019-08-17] MEDS ORDERED: KETOROLAC TROMETHAMINE 30 MG/ML VIAL IV STA (09:41)
[2019-08-17] MEDS ORDERED: ONDANSETRON HCL INJ 2MG/ML 2ML 2 MG/ML VIAL IV STA (09:41)
[2019-08-17 10:42] LABS: BASOPHILS % 0.5 % (0.0-1.0); EOSINOPHILS % 0.3 % (0.0-6.0); HEMATOCRIT 37.3 % (34.2-44.1); HEMOGLOBIN 12.7 g/dL (12.0-16.0); LYMPHOCYTES # (AUTO) 0.8 (1.0-3.2); LYMPHOCYTES % 12.2 % (18.0-39.1); MEAN CORPUSCULAR HEMOGLOBIN 32.3 pg (28-32); MEAN CORPUSCULAR VOLUME 94.9 fL (81-99); MONOCYTES # (AUTO) 0.4 (0.2-0.8); MONOCYTES % 6.8 % (4.4-11.3); NEUTROPHILS % 79.9 % (38.7-80.0); PLATELET COUNT 207 x10e3/uL (140-360); RED BLOOD COUNT 3.93 x10e6/uL (3.6-5.1); RED CELL DISTRIBUTION WIDTH 12.7 % (11.7-14.4)
[2019-08-17 10:50] LABS: CLARITY,URINE CLEAR (CLEAR); COLOR,URINE YELLOW (YELLOW)
[2019-08-17 10:51] LABS: BILIRUBIN,URINE NEGATIVE (NEGATIVE); KETONES,URINE NEGATIVE (NEGATIVE); LEUKOCYTE ESTERASE ,URINE NEGATIVE (NEGATIVE); NITRITE,URINE NEGATIVE (NEGATIVE); PROTEIN,URINE DIPSTICK NEGATIVE (NEGATIVE); URINE UROBILINOGEN 0.2 mg/dL (0.2 - 1)
[2019-08-17 10:57] LABS: BACTERIA,URINE MODERATE /HPF; EPITHELIAL CELLS,URINE RARE /LPF; RBC,URINE 0-5 /HPF (0-5); WBC,URINE (MAN) 0-5 /HPF (0-5)
[2019-08-17 11:14] LABS: ALANINE AMINOTRANSFERASE 26 IU/L (0-55); ALBUMIN/GLOBULIN RATIO 1.3 (0.8-2.0); ALKALINE PHOSPHATASE 91 IU/L (40-150); ANION GAP 10.8 mmol/L (8-16); BLOOD UREA NITROGEN 8 mg/dL (7-26); BUN/CREATININE RATIO 11 (6-25); CALCIUM 9.6 mg/dL (8.4-10.2); CARBON DIOXIDE 26 mmol/L (22-29); CHLORIDE 98 mmol/L (98-107); CREATININE, SERUM 0.75 mg/dL (0.57-1.11); EST GLOMERULAR FILTRATION RATE > 60 ML/MIN (60-); GLUCOSE 115 mg/dL (74-118); POTASSIUM 3.8 mmol/L (3.5-5.1); SODIUM 131 mmol/L (136-145)
--- NOTE | 2019-08-17 12:54 | Diagnostic Imaging Report ---
CT of the abdomen and pelvis, with contrast. History: Right abdominal/inguinal pain. Comparison: None available. Technique: Multidetector CT scanning of the abdomen and pelvis was performed from the level of the lung bases to the inferior pubic rami after intravenous administration of contrast. Coronal and sagittal multiplanar reformations were obtained. RADIATION DOSE: Total DLP: 966.81 mGy*cm Dose modulation, iterative reconstruction, and/or weight based adjustment of the mA/kV was utilized to reduce the radiation dose to as low as reasonably achievable. FINDINGS: The visualized lungs are unremarkable. The imaged portion of the heart demonstrates no significant abnormalities. The liver is normal in size and attenuation. Mild geographic region of hypoattenuation noted along the falciform ligament compatible with focal fat infiltration. No other focal hepatic abnormality is identified. The gallbladder is unremarkable. There is no biliary ductal dilatation. There are postsurgical changes compatible with prior gastric bypass. The remnant stomach appears unremarkable. The spleen, pancreas, and bilateral adrenal glands are unremarkable. The kidneys are normal in size and location and enhance symmetrically. There is minimal prominence of the right renal pelvis and proximal ureter without evidence for true intrarenal hydronephrosis. There is no evidence for left-sided hydronephrosis. No radiopaque renal or ureteral stone is identified. The urinary bladder demonstrates no significant abnormalities. Suspected tubal sterilization clips noted. The uterus and adnexa are otherwise grossly unremarkable. The abdominal aorta is normal in course and caliber with mild atherosclerotic calcifications. The IVC is unremarkable. Please note evaluation the bowel is limited without the use of enteric contrast material. The visualized loops of small and large bowel demonstrate no evidence of obstruction or inflammation. A suspected normal-appearing appendix is identified within the right lower quadrant. There is no ascites or intraperitoneal free air. Normal-sized inguinal lymph nodes are noted. No abnormally enlarged lymph nodes are identified within the abdomen or pelvis. There is a small fat-containing umbilical hernia present. There are degenerative changes of the thoracolumbar spine. There is no evidence for acute fracture or destructive process. The extra peritoneal soft tissues are unremarkable. IMPRESSION: Minimal prominence of the right renal pelvis and proximal ureter. No radiopaque stone or obstructive uropathy identified. Findings may reflect sequela of a recently passed urinary stone or urinary tract infection. Recommend correlation with symptomatology and urinalysis as clinically indicated. No other acute abdominopelvic process identified. Signed by: Dr. Carmelo Cruz MD on 08/17/2019 12:50 PM
[2019-08-17] MEDS ORDERED: SODIUM CHLORIDE 0.9% 50ML 50 ML ONE (13:09)
[2019-08-17] MEDS ORDERED: IOPAMIDOL 370 MG/ML 200 ML INFUS..BTL INJ ONE (13:09)
--- NOTE | 2019-08-17 13:31 | Emergency Department Note ---
History of Present Illnes History of Present Illness Chief Complaint: General Medicine Complaints History of Present Illness This is a 59 year old female PATIENT IN FROM HOME WITH COMPLAINTS OF RIGHT LOWER ABDOMINAL AND LEG PAIN SINCE YESTERDAY; PATIENT DENIES FALL OR TRAUMA, DENIES URINARY SYMPTOMS, DENIES NAUSEA OR VOMITING. PATIENT RATES PAIN 10/10, AMBULATORY WITHOUT ASSISTANCE, RESP EVEN AND NONLABORED, APPEARS ANXIOUS. 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 Any updates have been documented here. Past Medical History Recent Fever: No Clinical Suspicion of Infectio: No New/Unexplained Change in Ment: No Past Medical History: Hypertension, Anxiety, Depression, Hyperlipedemia Other Medical History: ANXIETY DEPRESSION Past Surgical History: None Other Surgery: 2 C-SECTIONS CARPAL TUNNEL RIGHT FOOT GASTRIC BYPASS Social History Smoking Cessation: Never Smoker Counseling Performed: No Alcohol Use: None Any Illegal Drug Use: No TB Exposure/Symptoms: No Physically hurt or threatened: No Family History Family history of heart diseas: No Other Last Tetanus: UNKNOWN Any Pre-Existing Lines (PICC,: No Is patient up to date on immun: Yes Last Flu: UTD Last Pneumovax: NA Review of Systems Review of Systems Constitutional: Reports no symptoms EENTM: Reports no symptoms Cardiovascular: Reports no symptoms Respiratory: Reports no symptoms Gastrointestinal: Reports no symptoms Genitourinary: Reports no symptoms Musculoskeletal: Reports as per HPI Integumentary: Reports no symptoms Neurological: Reports no symptoms Psychological: Reports no symptoms Endocrine: Reports no symptoms Hematological/Lymphatic: Reports no symptoms Physical Exam Related Data Allergies: Coded Allergies: No Known Allergies (Verified , 08/16/19) Triage Vital Signs Vital Signs Date Time Temp Pulse Resp B/P (MAP) Pulse Ox O2 Delivery O2 Flow Rate FiO2 08/17/19 09:31 98.7 76 18 134/87 99 Vital signs reviewed: Yes Physical Exam CONSTITUTIONAL Constitutional: Present well-developed, Present well-nourished HENT HENT: Present normocephalic, Present atraumatic, Present oropharynx clear/moist, Present nose normal HENT L/R: Present left ext ear normal, Present right ext ear normal EYES Eyes: Reports PERRL, Reports conjunctivae normal NECK Neck: Present ROM normal PULMONARY Pulmonary: Present effort normal, Present breath sounds normal CARDIOVASCULAR Cardiovascular: Present regular rhythm, Present heart sounds normal, Present capillary refill normal, Present normal rate GASTROINTESTINAL Abdominal: Present soft, Present nontender, Present other (VERY TENDER IN RIGHT INGUINAL AREA, NO MASS PALPABLE, GOOD FEM PULSE AND DISTAL PULSES, GOOD ROM RIGHT HIP) GENITOURINARY Genitourinary: Present exam deferred SKIN Skin: Present warm, Present dry MUSCULOSKELETAL Musculoskeletal: Present ROM normal NEUROLOGICAL Neurological: Present alert, Present oriented x 3, Present no gross motor or sensory deficits PSYCHOLOGICAL Psychological: Present mood/affect normal, Present judgement normal Results Laboratory Result Diagram: 08/17/19 1000 08/17/19 1000 Laboratory Laboratory Tests Test 08/17/19 10:00 08/17/19 09:47 White Blood Count 6.31 x10e3/uL (4.8-10.8) Red Blood Count 3.93 x10e6/uL (3.6-5.1) Hemoglobin 12.7 g/dL (12.0-16.0) Hematocrit 37.3 % (34.2-44.1) Mean Corpuscular Volume 94.9 fL (81-99) Mean Corpuscular Hemoglobin 32.3 pg (28-32) Mean Corpuscular Hemoglobin Concent 34.0 g/dL (31-35) Red Cell Distribution Width 12.7 % (11.7-14.4) Platelet Count 207 x10e3/uL (140-360) Neutrophils (%) (Auto) 79.9 % (38.7-80.0) Lymphocytes (%) (Auto) 12.2 % (18.0-39.1) Monocytes (%) (Auto) 6.8 % (4.4-11.3) Eosinophils (%) (Auto) 0.3 % (0.0-6.0) Basophils (%) (Auto) 0.5 % (0.0-1.0) Neutrophils # (Auto) 5.0 (2.1-6.9) Lymphocytes # (Auto) 0.8 (1.0-3.2) Monocytes # (Auto) 0.4 (0.2-0.8) Eosinophils # (Auto) 0.0 (0.0-0.4) Basophils # (Auto) 0.0 (0.0-0.1) Absolute Immature Granulocyte (auto 0.02 x10e3/uL (0-0.1) Sodium Level 131 mmol/L (136-145) Potassium Level 3.8 mmol/L (3.5-5.1) Chloride Level 98 mmol/L (98-107) Carbon Dioxide Level 26 mmol/L (22-29) Anion Gap 10.8 mmol/L (8-16) Blood Urea Nitrogen 8 mg/dL (7-26) Creatinine 0.75 mg/dL (0.57-1.11) Estimat Glomerular Filtration Rate > 60 ML/MIN (60-) BUN/Creatinine Ratio 11 (6-25) Glucose Level 115 mg/dL (74-118) Calcium Level 9.6 mg/dL (8.4-10.2) Total Bilirubin 0.3 mg/dL (0.2-1.2) Aspartate Amino Transf (AST/SGOT) 27 IU/L (5-34) Alanine Aminotransferase (ALT/SGPT) 26 IU/L (0-55) Alkaline Phosphatase 91 IU/L (40-150) Total Protein 7.2 g/dL (6.5-8.1) Albumin 4.0 g/dL (3.5-5.0) Globulin 3.2 g/dL (2.3-3.5) Albumin/Globulin Ratio 1.3 (0.8-2.0) Urine Color Yellow (YELLOW) Urine Clarity Clear (CLEAR) Urine pH 6.5 (5 - 7) Urine Specific [place] 1.020 (1.010-1.025) Urine Protein Negative (NEGATIVE) Urine Glucose (UA) Negative (NEGATIVE) Urine Ketones Negative (NEGATIVE) Urine Blood Negative (NEGATIVE) Urine Nitrite Negative (NEGATIVE) Urine Bilirubin Negative (NEGATIVE) Urine Urobilinogen 0.2 mg/dL (0.2 - 1) Urine Leukocyte Esterase Negative (NEGATIVE) Urine RBC 0-5 /HPF (0-5) Urine WBC 0-5 /HPF (0-5) Urine Epithelial Cells Rare /LPF (NONE) Urine Bacteria Moderate /HPF (NONE) Lab results reviewed: Yes Imaging Imaging results reviewed: Yes Impressions CT L-SPINE IMPRESSION: 1. Multilevel disc degenerative, severe at L3-L4 and L4-L5 along the concavity of mild lumbar levocurvature. 2. Severe degenerative canal stenosis at L3-L4. 3. Mild canal stenosis and potential impingement on the bilateral L5 subarticular nerve roots at L4-5. 4. Severe degenerative foraminal stenosis on the right at L3-L4, bilaterally at L4-5 and on the left at L5-S1. 5. Multilevel advanced facet arthrosis. Signed by: Dr. Nakul Mai M.D. on 08/17/2019 1:[address] ABD/PELVIS W IMPRESSION: Minimal prominence of the right renal pelvis and proximal ureter. No radiopaque stone or obstructive uropathy identified. Findings may reflect sequela of a recently passed urinary stone or urinary tract infection. Recommend correlation with symptomatology and urinalysis as clinically indicated. No other acute abdominopelvic process identified. Signed by: Dr. Carmelo Cruz MD on 08/17/2019 12:50 PM Assessment & Plan Medical Decision Making MDM CHECK CBC, CHEM, UA, CT ABD/PELVIS AND CT L-SPINE - R/O INGUINAL HERNIA/FEMORAL HERNIA, SCIATICA, ELECTROLYTE ABNL, LEUKOCYTOSIS Reassessment Reassessment IMPROVED WITH TORADOL. PT HAS TYL #3 AT HOME, WILL GIVE MEDROL DOSE ARTI Assessment & Plan Final Impression: (1) Sciatica Depart Disposition: HOME, SELF-CARE Last Vital Signs Date Time Temp Pulse Resp B/P (MAP) Pulse Ox O2 Delivery O2 Flow Rate FiO2 08/17/19 12:42 98.4 61 18 164/81 59 Home Meds Reported Medications Amitriptyline Hcl (AMITRIPTYLINE HCL) 25 Mg Tablet, 100 MG PO HS, #30 TAB 07/05/19 Rosuvastatin Calcium (CRESTOR) 5 Mg Tablet, 5 MG PO DAILY THERAPEUTICALLY SUBSTITUTED WITH SIMVASTATIN 20MG 07/05/19 Furosemide (LASIX) 40 Mg Tablet, 40 MG PO DAILY, #30 TAB 07/05/19 Olmesartan Medoxomil (BENICAR) 20 Mg Tablet, 5 MG PO DAILY, #30 TAB 07/05/19 Bupropion Hcl (WELLBUTRIN) 75 Mg Tablet, 300 MG PO DAILY 12/28/14 Medications in the ED Ondansetron HCl 4 mg ONCE STAT IV Last administered on 08/17/19at 10:24; Admin Dose 4 MG; Start 08/17/19 at 09:41; Stop 08/17/19 at 10:08; Status DC Ketorolac Tromethamine 30 mg ONCE STAT IV Last administered on 08/17/19at 10:24 ; Admin Dose 30 MG; Start 08/17/19 at 09:41; Stop 08/17/19 at 10:06; Status DC Sodium Chloride 50 ml @ ud STK-MED ONCE .ROUTE ; Start 08/17/19 at 13:09; Stop 08/17/19 at 13:03; Status DC Iopamidol 74,000 mg STK-MED ONCE INJ ; Start 08/17/19 at 13:09; Stop 08/17/19 at 13:03; Status DC MARC REEVES MD Aug 17, 2019 13:31
--- NOTE | 2019-08-17 13:51 | Diagnostic Imaging Report ---
History: Pain radiates to right inguinal region and to 5. Comparison studies: None. Technique: Axial images were obtained through the lumbar spine. Coronal and sagittal images reconstructed from the axial data. Dose modulation, iterative reconstruction, and/or weight based adjustment of the mA/kV was utilized to reduce the radiation dose to as low as reasonably achievable. Intravenous contrast: None Findings: Number of non-rib bearing vertebral bodies: 5 Alignment: Normal lumbar lordosis. Lumbar levocurvature with apex at L4. Soft tissues: Partially imaged surgical changes in the left upper quadrant of the abdomen were there are surgical diane Paraspinal muscles: Mild symmetric fatty-replaced atrophic changes. Sacroiliac joints: Mild degenerative changes bilaterally. Vertebrae: No fractures, infection or neoplasm. Degenerative changes: T11-T12: Moderately degenerated disc. Asymmetric left disc osteophyte complex result in mild left foraminal stenosis. Patent canal and right foramen. T12-L1: Mildly degenerated disc. Asymmetric left disc bulge result in mild left foraminal stenosis. Patent canal and right foramen. L1-L2: Mild facet arthrosis. Patent canal and foramina appear L2-L3: Mildly degenerated disc. Disc bulge, thickened ligamentum flavum and mild facet arthrosis result in mild canal stenosis and mild foraminal stenosis (right greater than left). L3-L4: Severely degenerated disc on the right along the concavity lumbar curvature where there are sclerotic endplate changes. Asymmetric right disc osteophyte complex, thickened ligamentum flavum moderate right and mild left facet arthrosis result in severe canal stenosis and severe right foraminal stenosis. Patent left foramen. L4-L5: Severely degenerated disc. Disc osteophyte complex, thickened ligamentum flavum and moderate right and mild left facet arthrosis result in mild canal stenosis, narrowing of the bilateral subarticular recesses with potential impingement on the bilateral L5 nerve roots and severe bilateral foraminal stenosis. L5-S1: Mildly degenerated disc. Disc osteophyte complex and severe right and moderate left facet arthrosis result in severe left and moderate right foraminal stenosis. No significant canal stenosis. IMPRESSION: 1. Multilevel disc degenerative, severe at L3-L4 and L4-L5 along the concavity of mild lumbar levocurvature. 2. Severe degenerative canal stenosis at L3-L4. 3. Mild canal stenosis and potential impingement on the bilateral L5 subarticular nerve roots at L4-5. 4. Severe degenerative foraminal stenosis on the right at L3-L4, bilaterally at L4-5 and on the left at L5-S1. 5. Multilevel advanced facet arthrosis. Signed by: Dr. Nakul Mai M.D. on 08/17/2019 1:47 PM
[2019-08-17] MEDS ORDERED: HYDROCODONE/APAP 10MG-325MG TAB PO ONE (14:30)
[2019-08-17 14:56] VITALS: BP 146/80
== END 2019-08-17 15:05 | disposition home or self-care (01) ==
LOC: ER 09:05
DX: R10.31 Right lower quadrant pain (principal); M54.31 Sciatica, right side; I10 Essential (primary) hypertension; E78.5 Hyperlipidemia, unspecified; F41.9 Anxiety disorder, unspecified; F32.9 Major depressive disorder, single episode, unspecified
CPT/HCPCS: 36415; 72131; 74177; 80053; 81001; 85025; 87086; 99284; J1885; J2405; Q9967

== ENCOUNTER 2021-08-29 14:34 | Emergency (ER) | payer BC, OTHER ==
[~2021-08-29] VITALS: Ht 157.5 cm; Wt 81.2 kg
[2021-08-29] MEDS ORDERED: SODIUM CHLORIDE 0.9% 1000ML 1,000 ML IV STA (14:55)
[2021-08-29] MEDS ORDERED: MECLIZINE HCL 12.5 MG TAB PO ONE (15:00)
[2021-08-29 15:14] LABS: BASOPHILS % 0.6 % (0.0-1.0); EOSINOPHILS # (AUTO) 0.3 (0.0-0.4); HEMATOCRIT 37.7 % (34.2-44.1); HEMOGLOBIN 12.5 g/dL (12.0-16.0); LYMPHOCYTES % 32.1 % (18.0-39.1); MEAN CORPUSCULAR HEMOGLOBIN 33.3 pg (28-32); MEAN CORPUSCULAR HGB CONC 33.2 g/dL (31-35); MEAN CORPUSCULAR VOLUME 100.5 fL (81-99); MONOCYTES # (AUTO) 0.6 (0.2-0.8); MONOCYTES % 9.8 % (4.4-11.3); NEUTROPHILS # (AUTO) 3.4 (2.1-6.9); NEUTROPHILS % 53.2 % (38.7-80.0); PLATELET COUNT 284 x10e3/uL (140-360); RED BLOOD COUNT 3.75 x10e6/uL (3.6-5.1); RED CELL DISTRIBUTION WIDTH 12.7 % (11.7-14.4)
[2021-08-29 15:32] LABS: CLARITY,URINE SL CLOUDY (CLEAR); COLOR,URINE YELLOW (YELLOW); INR 0.9; KETONES,URINE TRACE (NEGATIVE); LEUKOCYTE ESTERASE ,URINE TRACE (NEGATIVE); NITRITE,URINE NEGATIVE (NEGATIVE); PROTEIN,URINE DIPSTICK TRACE (NEGATIVE); URINE UROBILINOGEN 0.2 mg/dL (0.2 - 1)
[2021-08-29 15:33] LABS: PARTIAL THROMBOPLASTIN TIME 26.1 seconds (23.8-35.5)
[2021-08-29 15:43] LABS: ALANINE AMINOTRANSFERASE 7 IU/L (0-55); ALBUMIN 3.9 g/dL (3.5-5.0); ALBUMIN/GLOBULIN RATIO 1.1 (0.8-2.0); ALKALINE PHOSPHATASE 117 IU/L (40-150); BACTERIA,URINE MANY /HPF; BLOOD UREA NITROGEN 24 mg/dL (7-26); BUN/CREATININE RATIO 20 (6-25); CALCIUM 9.2 mg/dL (8.4-10.2); CARBON DIOXIDE 28 mmol/L (22-29); CHLORIDE 100 mmol/L (98-107); CREATINE KINASE 62 IU/L (29-168); CREATININE, SERUM 1.19 mg/dL (0.57-1.11); GLUCOSE 105 mg/dL (74-118); SODIUM 141 mmol/L (136-145); WBC,URINE (MAN) 0-5 /HPF (0-5)
[2021-08-29] MEDS ORDERED: KETOROLAC TROMETHAMINE 30 MG/ML VIAL IV STA (15:45)
[2021-08-29] MEDS ORDERED: DIPHENHYDRAMINE HCL INJ 50 MG/ML VIAL IV ONE (15:45)
[2021-08-29] MEDS ORDERED: METOCLOPRAMIDE HCL 10 MG/2ML VIAL IV ONE (15:45)
[2021-08-29 16:07] LABS: AMPHETAMINES SCREEN,URINE NEGATIVE (NEGATIVE); BENZODIAZEPINES SCREEN,URINE NEGATIVE (NEGATIVE); PHENCYCLIDINE SCREEN,URINE NEGATIVE (NEGATIVE)
== END 2021-08-29 16:55 | disposition home or self-care (01) ==
LOC: ER 14:45
DX: R42 Dizziness and giddiness (principal); E86.0 Dehydration; I10 Essential (primary) hypertension; E78.5 Hyperlipidemia, unspecified; F41.9 Anxiety disorder, unspecified; Z98.84 Bariatric surgery status
CPT/HCPCS: 36415; 70450; 71045; 80053; 80307; 81001; 82550; 82553; 83735; 84484; 85025; 85610; 85730; 87086; 93005; 99284; J1200; J1885; J2765; J7030; J8597

== ENCOUNTER 2021-10-15 21:46 | Emergency (ER) | payer BC ==
[~2021-10-15] VITALS: Ht 157.5 cm; Wt 81.2 kg
[~2021-10-15 21:46] MED LIST changes: +IOPAMIDOL 300MG/ML 100 ML INFUS..BTL IV ONE
[2021-10-15] MEDS ORDERED: SODIUM CHLORIDE 0.9% 1000ML 1,000 ML IV STA (22:21)
[2021-10-15 22:43] LABS: BASOPHILS % 0.4 % (0.0-1.0); EOSINOPHILS # (AUTO) 0.2 (0.0-0.4); EOSINOPHILS % 3.1 % (0.0-6.0); HEMATOCRIT 41.6 % (34.2-44.1); HEMOGLOBIN 13.8 g/dL (12.0-16.0); LYMPHOCYTES # (AUTO) 1.6 (1.0-3.2); LYMPHOCYTES % 32.3 % (18.0-39.1); MEAN CORPUSCULAR HEMOGLOBIN 32.4 pg (28-32); MEAN CORPUSCULAR HGB CONC 33.2 g/dL (31-35); MEAN CORPUSCULAR VOLUME 97.7 fL (81-99); MONOCYTES # (AUTO) 0.6 (0.2-0.8); NEUTROPHILS # (AUTO) 2.5 (2.1-6.9); PLATELET COUNT 233 x10e3/uL (140-360); RED BLOOD COUNT 4.26 x10e6/uL (3.6-5.1); RED CELL DISTRIBUTION WIDTH 12.3 % (11.7-14.4)
[2021-10-15] MEDS ORDERED: ONDANSETRON HCL INJ 2MG/ML 2ML 2 MG/ML VIAL IV STA (22:56)
[2021-10-15] MEDS ORDERED: Morphine 4mg INJECTION 4 MG/ML INJ IV ONE (23:00)
[2021-10-15 23:08] LABS: ALBUMIN 3.8 g/dL (3.5-5.0); ALBUMIN/GLOBULIN RATIO 1.1 (0.8-2.0); ANION GAP 17.6 mmol/L (8-16); CALCIUM 9.3 mg/dL (8.4-10.2); CREATININE, SERUM 0.76 mg/dL (0.57-1.11); POTASSIUM 3.6 mmol/L (3.5-5.1)
[2021-10-15] MEDS ORDERED: ONDANSETRON HCL INJ 2MG/ML 2ML 2 MG/ML VIAL ONE (23:13)
[2021-10-15] MEDS ORDERED: Morphine 4mg INJECTION 4 MG/ML INJ ONE (23:13)
[2021-10-16 00:09] LABS: CREATINE KINASE MB 1.6 ng/mL (0-5.0)
[2021-10-16] MEDS ORDERED: PEPCID AC10 MG PO (00:36)
[2021-10-16] MEDS ORDERED: METRONIDAZOLE500 MG PO (00:36)
[2021-10-16] MEDS ORDERED: LOMOTIL TABLET1 EACH PO (00:36)
[2021-10-16 03:11] VITALS: BP 123/61
[2021-10-17] MEDS ORDERED: DICYCLOMINE HCL20 MG PO (09:53)
[2021-10-17] MEDS ORDERED: ONDANSETRON ODT4 MG PO (09:53)
[2021-10-17] MEDS ORDERED: CIPRO500 MG PO (09:53)
== END 2021-10-16 02:10 | disposition home or self-care (01) ==
LOC: ER 21:52
DX: R10.13 Epigastric pain (principal); K52.9 Noninfective gastroenteritis and colitis, unspecified; I10 Essential (primary) hypertension; E78.5 Hyperlipidemia, unspecified; F41.9 Anxiety disorder, unspecified; Z98.84 Bariatric surgery status
CPT/HCPCS: 36415; 74177; 80053; 82550; 82553; 83690; 84484; 85025; 93005; 99284; J2270; J2405; J7030; Q9967

== ENCOUNTER 2021-10-17 08:54 | Emergency (ER) | payer BC ==
[~2021-10-17] VITALS: Ht 157.5 cm; Wt 81.2 kg
[~2021-10-17 08:54] MED LIST changes: -IOPAMIDOL 300MG/ML 100 ML INFUS..BTL IV ONE; +LOMOTIL TABLET1 EACH PO; +METRONIDAZOLE500 MG PO; +PEPCID AC10 MG PO; +SODIUM CHLORIDE 0.9% 1000ML 1,000 ML IV SCH; +SODIUM CHLORIDE FLUSH 10 ML SYR IV PRN
[2021-10-17] MEDS ORDERED: ONDANSETRON HCL INJ 2MG/ML 2ML 2 MG/ML VIAL IV STA (09:21)
[2021-10-17] MEDS ORDERED: DICYCLOMINE HCL20 MG PO (09:53)
[2021-10-17] MEDS ORDERED: CIPRO500 MG PO (09:53)
[2021-10-17] MEDS ORDERED: ONDANSETRON ODT4 MG PO (09:53)
[2021-10-17 10:21] LABS: BASOPHILS % 0.5 % (0.0-1.0); EOSINOPHILS # (AUTO) 0.1 (0.0-0.4); EOSINOPHILS % 1.6 % (0.0-6.0); HEMOGLOBIN 13.1 g/dL (12.0-16.0); LYMPHOCYTES # (AUTO) 0.9 (1.0-3.2); LYMPHOCYTES % 15.3 % (18.0-39.1); MEAN CORPUSCULAR HEMOGLOBIN 32.1 pg (28-32); MEAN CORPUSCULAR HGB CONC 33.6 g/dL (31-35); MEAN CORPUSCULAR VOLUME 95.6 fL (81-99); MONOCYTES # (AUTO) 0.8 (0.2-0.8); MONOCYTES % 13.5 % (4.4-11.3); NEUTROPHILS # (AUTO) 4.2 (2.1-6.9); NEUTROPHILS % 68.9 % (38.7-80.0); PLATELET COUNT 217 x10e3/uL (140-360); RED BLOOD COUNT 4.08 x10e6/uL (3.6-5.1); RED CELL DISTRIBUTION WIDTH 12.2 % (11.7-14.4)
[2021-10-17 10:35] LABS: INR 0.91; PROTHROMBIN TIME 13.1 seconds (11.9-14.5)
[2021-10-17 10:38] LABS: ALBUMIN 3.3 g/dL (3.5-5.0); ALBUMIN/GLOBULIN RATIO 1.1 (0.8-2.0); ANION GAP 18.4 mmol/L (8-16); CALCIUM 8.3 mg/dL (8.4-10.2); CREATININE, SERUM 0.63 mg/dL (0.57-1.11); POTASSIUM 3.4 mmol/L (3.5-5.1)
[2021-10-17 11:35] LABS: CLARITY,URINE CLEAR (CLEAR); COLOR,URINE YELLOW (YELLOW); KETONES,URINE >=160 (NEGATIVE); LEUKOCYTE ESTERASE ,URINE TRACE (NEGATIVE); NITRITE,URINE NEGATIVE (NEGATIVE); PROTEIN,URINE DIPSTICK NEGATIVE (NEGATIVE)
[2021-10-17 11:36] LABS: URINE UROBILINOGEN 0.2 mg/dL (0.2 - 1)
[2021-10-17 11:55] LABS: BACTERIA,URINE MODERATE /HPF; EPITHELIAL CELLS,URINE MODERATE /LPF; RBC,URINE 0-5 /HPF (0-5)
== END 2021-10-17 12:31 | disposition home or self-care (01) ==
LOC: ER 09:00
DX: K52.9 Noninfective gastroenteritis and colitis, unspecified (principal); N39.0 Urinary tract infection, site not specified; R50.9 Fever, unspecified; I10 Essential (primary) hypertension; E78.5 Hyperlipidemia, unspecified; F41.9 Anxiety disorder, unspecified; Z98.84 Bariatric surgery status
CPT/HCPCS: 36415; 80053; 81001; 83690; 85025; 85610; 99284; J2405; J7030

== ENCOUNTER 2023-12-06 11:36 | Emergency (ER) | payer BC, OTHER ==
[~2023-12-06] VITALS: Ht 157.5 cm; Wt 86.2 kg
[~2023-12-06 11:36] MED LIST changes: +CIPRO500 MG PO; +DICYCLOMINE HCL20 MG PO; +METHOCARBAMOL500 MG PO; +ONDANSETRON ODT4 MG PO; -SODIUM CHLORIDE 0.9% 1000ML 1,000 ML IV SCH; -SODIUM CHLORIDE FLUSH 10 ML SYR IV PRN; +VENLAFAXINE HC150 MG PO
[2023-12-06 11:53] VITALS: TEMP 99
[2023-12-06] MEDS ORDERED: PROCHLORPERAZINE EDISYLATE 5 MG/ML VIAL IV PRN (12:15)
[2023-12-06 12:28] LABS: BASOPHILS # (AUTO) 0.1 (0.0-0.1); BASOPHILS % 0.7 % (0.0-1.0); EOSINOPHILS # (AUTO) 0.1 (0.0-0.4); EOSINOPHILS % 1.7 % (0.0-6.0); HEMATOCRIT 36.5 % (34.2-44.1); HEMOGLOBIN 11.8 g/dL (12.0-16.0); LYMPHOCYTES # (AUTO) 1.3 (1.0-3.2); LYMPHOCYTES % 18.9 % (18.0-39.1); MEAN CORPUSCULAR HEMOGLOBIN 31.9 pg (28-32); MEAN CORPUSCULAR HGB CONC 32.3 g/dL (31-35); MEAN CORPUSCULAR VOLUME 98.6 fL (81-99); MONOCYTES # (AUTO) 0.5 (0.2-0.8); NEUTROPHILS % 71.4 % (38.7-80.0); PLATELET COUNT 275 x10e3/uL (140-360); RED CELL DISTRIBUTION WIDTH 12.8 % (11.7-14.4); WHITE BLOOD COUNT 6.98 x10e3/uL (4.8-10.8)
[2023-12-06] MEDS: SODIUM CHLORIDE 0.9% 1000ML 1,000 ML IV ONE (12:34)
[2023-12-06] MEDS: DIPHENHYDRAMINE HCL INJ 50 MG/ML VIAL IV ONE (12:34)
[2023-12-06 12:45] LABS: ALBUMIN 3.6 g/dL (3.5-5.0); ALBUMIN/GLOBULIN RATIO 1.2 (0.8-2.0); BILIRUBIN,TOTAL 0.6 mg/dL (0.2-1.2); CALCIUM 9.1 mg/dL (8.4-10.2); CREATININE, SERUM 0.93 mg/dL (0.57-1.11); TOTAL PROTEIN 6.5 g/dL (6.5-8.1)
[2023-12-06] MEDS ORDERED: PROCHLORPERAZINE EDISYLATE INJ 10 MG in Sodium Chloride 0.9% 50ML 50 ML IV PRN (12:45)
[2023-12-06] MEDS: ONDANSETRON HCL INJ 2MG/ML 2ML 2 MG/ML VIAL IV STA (12:46)
[2023-12-06 13:38] VITALS: PULSE 82; RESP 16
[2023-12-06] MEDS: ACETAMINOPHEN 325 MG TAB PO ONE (13:41)
[2023-12-06] MEDS: KETOROLAC TROMETHAMINE 30 MG/ML VIAL IV STA (14:06)
[2023-12-06 15:01] VITALS: BP 152/83; PULSE 76; RESP 16; O2SAT 100
== END 2023-12-06 14:36 | disposition home or self-care (01) ==
LOC: ER 12:06
DX: R50.9 Fever, unspecified (principal); R51.9 Headache, unspecified; R11.0 Nausea; G62.9 Polyneuropathy, unspecified; F41.9 Anxiety disorder, unspecified; F32.A Depression, unspecified; Z98.84 Bariatric surgery status
CPT/HCPCS: 36415; 70450; 80053; 85025; 99283; J0780; J1200; J1885; J2405; J7030

== ENCOUNTER 2024-01-25 09:31 | Emergency (ER) | payer BC ==
[~2024-01-25] VITALS: Ht 157.5 cm; Wt 79.4 kg
[~2024-01-25 09:31] MED LIST changes: +BUTALB-ACETAMI1 EACH PO; +FLONASE ALLERG9.9 ML INH; +MELOXICAM7.5 MG PO
[2024-01-25 09:45] VITALS: PULSE 82; RESP 16; TEMP 98.8; O2SAT 100
[2024-01-25] MEDS ORDERED: ONDANSETRON ODT4 MG PO (10:23)
[2024-01-25] MEDS ORDERED: DICYCLOMINE HCL20 MG PO (10:23)
== END 2024-01-25 10:30 | disposition home or self-care (01) ==
LOC: ER 09:46
DX: R11.0 Nausea (principal); R19.7 Diarrhea, unspecified
CPT/HCPCS: 99282

== ENCOUNTER → 2024-02-12 | Outpatient (REF) | payer BC | LOC: US 11:45 | PROVIDERS: ATTEND Nurse Practitioner | DX: R10.11 Right upper quadrant pain (principal); R19.5 Other fecal abnormalities | CPT/HCPCS: 76700 ==

== ENCOUNTER 2024-02-25 01:07 | Emergency (ER) | payer BC ==
[~2024-02-25] VITALS: Ht 157.5 cm; Wt 83.0 kg
[2024-02-25 01:14] VITALS: PULSE 75; RESP 18; TEMP 98.7
[2024-02-25 01:30] LABS: BASOPHILS % 0.3 % (0.0-1.0); EOSINOPHILS # (AUTO) 0.1 (0.0-0.4); EOSINOPHILS % 0.6 % (0.0-6.0); HEMATOCRIT 39.9 % (34.2-44.1); HEMOGLOBIN 12.8 g/dL (12.0-16.0); LYMPHOCYTES # (AUTO) 1.5 (1.0-3.2); LYMPHOCYTES % 13.9 % (18.0-39.1); MEAN CORPUSCULAR HEMOGLOBIN 32.4 pg (28-32); MEAN CORPUSCULAR HGB CONC 32.1 g/dL (31-35); MONOCYTES # (AUTO) 1.3 (0.2-0.8); NEUTROPHILS # (AUTO) 7.8 (2.1-6.9); NEUTROPHILS % 72.9 % (38.7-80.0); PLATELET COUNT 271 x10e3/uL (140-360); RED BLOOD COUNT 3.95 x10e6/uL (3.6-5.1); RED CELL DISTRIBUTION WIDTH 13.7 % (11.7-14.4); WHITE BLOOD COUNT 10.73 x10e3/uL (4.8-10.8)
[2024-02-25] MEDS: ONDANSETRON HCL INJ 2MG/ML 2ML 2 MG/ML VIAL IV STA (01:46)
[2024-02-25 01:57] LABS: ALBUMIN 3.7 g/dL (3.5-5.0); ALBUMIN/GLOBULIN RATIO 1.2 (0.8-2.0); ANION GAP 16.7 mmol/L (8-16); BILIRUBIN,TOTAL 0.3 mg/dL (0.2-1.2); CALCIUM 8.9 mg/dL (8.4-10.2); CREATININE, SERUM 0.84 mg/dL (0.57-1.11); POTASSIUM 3.7 mmol/L (3.5-5.1); TOTAL PROTEIN 6.8 g/dL (6.5-8.1)
[2024-02-25] MEDS ORDERED: IOPAMIDOL 370 MG/ML 100 ML INFUS..BTL INJ ONE (02:06)
[2024-02-25] MEDS ORDERED: DICYCLOMINE HCL 20 MG/2 ML VIAL IM ONE (02:15)
[2024-02-25 03:11] VITALS: BP 144/79; O2SAT 98
== END 2024-02-25 03:12 | disposition home or self-care (01) ==
LOC: ER 01:14
DX: R10.30 Lower abdominal pain, unspecified (principal); R19.7 Diarrhea, unspecified; G62.9 Polyneuropathy, unspecified; Z86.73 Personal history of transient ischemic attack (TIA), and cerebral infarction without residual deficits; Z96.652 Presence of left artificial knee joint; Z98.84 Bariatric surgery status
CPT/HCPCS: 36415; 74177; 80053; 83690; 85025; 99283; J2405; J2470; Q9967

== ENCOUNTER → 2024-03-21 | Outpatient (REF) | payer BC | LOC: DX 08:13 | PROVIDERS: ATTEND Nurse Practitioner | DX: R10.11 Right upper quadrant pain (principal); K29.70 Gastritis, unspecified, without bleeding; R19.7 Diarrhea, unspecified; R59.0 Localized enlarged lymph nodes | CPT/HCPCS: 74250 ==

== ENCOUNTER 2024-04-26 18:43 | Emergency (ER) | payer BC ==
[~2024-04-26] VITALS: Ht 157.5 cm; Wt 85.3 kg
[2024-04-26 20:00] VITALS: TEMP 98.3
[2024-04-26 20:58] VITALS: PULSE 63; RESP 17
[2024-04-26] MEDS: HYDROCODONE/APAP 7.5MG-325MG 1 EA TAB PO ONE ×2 (21:00→21:14)
[2024-04-26] MEDS ORDERED: HYDROCODON-ACE1 EA12 PO (21:52)
[2024-04-26 23:28] VITALS: BP 137/86; PULSE 73; RESP 17; TEMP 98; O2SAT 99
== END 2024-04-26 22:26 | disposition home or self-care (01) ==
LOC: ER 20:00
DX: S42.212A Unspecified displaced fracture of surgical neck of left humerus, initial encounter for closed fracture (principal); W01.0XXA Fall on same level from slipping, tripping and stumbling without subsequent striking against object, initial encounter; Y93.01 Activity, walking, marching and hiking; Y92.89 Other specified places as the place of occurrence of the external cause
CPT/HCPCS: 93971; 99283

== ENCOUNTER 2024-08-11 12:39 | Emergency (ER) | payer BC, MEDICARE ==
[~2024-08-11] VITALS: Ht 157.5 cm; Wt 85.3 kg
[~2024-08-11 12:39] MED LIST changes: +HYDROCODON-ACE1 EA12 PO; +ULTRAM 50MG50 MG PO
[2024-08-11 13:09] VITALS: PULSE 69; RESP 18; TEMP 97.4; O2SAT 99
[2024-08-11] MEDS ORDERED: PANTOPRAZOLE SO20 MG PO (13:22)
[2024-08-11 14:31] LABS: BASOPHILS % 0.6 % (0.0-1.0); EOSINOPHILS # (AUTO) 0.1 (0.0-0.4); EOSINOPHILS % 1.6 % (0.0-6.0); HEMATOCRIT 37.9 % (34.2-44.1); HEMOGLOBIN 12.6 g/dL (12.0-16.0); LYMPHOCYTES # (AUTO) 1.5 (1.0-3.2); LYMPHOCYTES % 28.3 % (18.0-39.1); MEAN CORPUSCULAR HEMOGLOBIN 32.9 pg (28-32); MEAN CORPUSCULAR HGB CONC 33.2 g/dL (31-35); MONOCYTES # (AUTO) 0.3 (0.2-0.8); MONOCYTES % 5.6 % (4.4-11.3); NEUTROPHILS # (AUTO) 3.3 (2.1-6.9); NEUTROPHILS % 63.5 % (38.7-80.0); PLATELET COUNT 214 x10e3/uL (140-360); RED BLOOD COUNT 3.83 x10e6/uL (3.6-5.1); RED CELL DISTRIBUTION WIDTH 13.3 % (11.7-14.4); WHITE BLOOD COUNT 5.15 x10e3/uL (4.8-10.8)
[2024-08-11 14:36] LABS: INR 0.87; PROTHROMBIN TIME 12.6 seconds (11.9-14.5)
[2024-08-11 15:06] LABS: ALBUMIN 3.7 g/dL (3.5-5.0); ALBUMIN/GLOBULIN RATIO 1.2 (0.8-2.0); ANION GAP 15.1 mmol/L (8-16); BILIRUBIN,TOTAL 0.3 mg/dL (0.2-1.2); CALCIUM 9.1 mg/dL (8.4-10.2); CREATININE, SERUM 0.8 mg/dL (0.57-1.11); POTASSIUM 4.1 mmol/L (3.5-5.1); TOTAL PROTEIN 6.8 g/dL (6.5-8.1)
[2024-08-11 15:12] LABS: TROPONIN I 0.005 ng/mL (0-0.300)
[2024-08-11] MEDS ORDERED: METHOCARBAMOL500 MG PO (17:24)
[2024-08-11] MEDS ORDERED: NAPROSYN500 MG PO (17:24)
[2024-08-11] MEDS ORDERED: METHYLPREDNISOLONE SOD SUCC 125 MG/2ML VIAL ONE (18:16)
[2024-08-11] MEDS: METHYLPREDNISOLONE SOD SUCC 125 MG/2ML VIAL IV SCH (18:17)
[2024-08-11] MEDS: KETOROLAC TROMETHAMINE 30 MG/ML VIAL IV STA (18:17)
== END 2024-08-11 18:22 | disposition home or self-care (01) ==
LOC: ER 17:05
DX: R20.2 Paresthesia of skin (principal); R07.89 Other chest pain; G62.9 Polyneuropathy, unspecified; F41.9 Anxiety disorder, unspecified; Z85.72 Personal history of non-Hodgkin lymphomas; Z96.652 Presence of left artificial knee joint; Z98.84 Bariatric surgery status
CPT/HCPCS: 36415; 71046; 80053; 82550; 84484; 85025; 85610; 85730; 93005; 99283; J1885; J2919